=== PATIENT | female | born 1995 | race African-American/Black ===

== ENCOUNTER 2017-02-13 13:39 | Emergency (ER) | payer OTHER ==
[~2017-02-13] VITALS: Ht 165.1 cm; Wt 95.3 kg
[~2017-02-13 13:39] MED LIST: ALBUTEROL0.09 MG/A1 INH; BROMFED DM COU473 ML PO; DOCUSATE SODIU100 MG PO; HYDROCODONE/ACE1 TA1 PO; IBUPROFEN800 MG PO; MOTRIN 800MG T800 MG PO; PERCOCET 325 MG1 TA2 PO; SYMBICORT 160/41 PUF INH
--- NOTE | 2017-02-13 14:34 | RADIOLOGY REPORT ---
EXAMINATION: XR FOOT, RIGHT CLINICAL INFORMATION: Pain after fall to lateral aspect COMPARISON: None TECHNIQUE: AP, lateral, and oblique views of the right foot. FINDINGS: The alignment is normal. No fracture, dislocation or acute osseous abnormality is seen. IMPRESSION: Normal examination.
--- NOTE | 2017-02-13 14:39 | RADIOLOGY REPORT ---
EXAMINATION: XR HAND, LEFT CLINICAL INFORMATION: Fall, pain COMPARISON: None TECHNIQUE: AP, lateral, and oblique views of the left hand. FINDINGS: There is no acute fracture or dislocation of the left hand. Mild soft tissue swelling along the ulnar aspect of the left hand seen. No radiodense foreign body. No soft tissue air. IMPRESSION: No acute fracture or dislocation of left hand.
--- NOTE | 2017-02-13 15:04 | ED GENERAL ADULT ---
See Addendum History of Present Illness General Chief Complaint: Fall Stated Complaint: FELL, HURT R FOOT, L PINKY Source: patient Exam Limitations: no limitations Vital Signs & Intake/Output Vital Signs & Intake/Output Vital Signs Date Time Temp Pulse Resp B/P B/P Pulse O2 O2 Flow FiO2 Mean Ox Delivery Rate 02/13 1350 98.2 84 20 128/84 97 Room Air Allergies Coded Allergies: NO KNOWN ALLERGIES (02/10/14) Reconcile Medications Albuterol Sulfate (Albuterol Sulfate Hfa) 0.09 MG/Actuation TESFAYE 2 PUFF INH Q4- 6 PRN PRN SHORTNESS OF BREATH/ASTHMA 90 MCG PER PUFF BROMPHENIRAMINE/PSEUDOEPHED/DM (Bromfed Dm Cough Syrup) 473 ML SYR 1-2 TSP PO Q6P PRN COUGH OR COLD SYMPTOMS Budesonide/Formoterol Fumara (Symbicort 160-4.5 Mcg Inhaler) 160 MCG/4.5 MCG PUF 2 PUF INH BID ASTHMA (Reported) Docusate Sodium 100 MG SGL 100 MG PO AT BEDTIME PRN STOOL SOFTENER HYDROCODONE/ACETAMINOPHEN (Hydrocodon-Acetaminophen 5-325) 1 TAB TAB 1 TAB PO Q6P PRN PAIN Ibuprofen 800 MG TABLET 800 MG PO Q6P PRN PAIN SCALE 4-6 OXYCODONE HCL/ACETAMINOPHEN (Percocet 5-325 MG Tablet) 325 MG/5 MG TAB 1 TAB PO Q4P PRN PAIN SCALE 7-8 Yibuprofen (Motrin 800MG Tab) 800 MG TAB 1 TAB PO Q6P PRN pain Triage Note: PER PT FELL DOWN 5 STEPS 2 DAYS AGO, PER PT L HAND RT FOOT MOTRIN NOT WORKING CURRENTLY ON MENSES Triage Nurses Notes Reviewed? yes Onset: Abrupt Duration: hour(s): Timing: recent history : No Patient currently breastfeeds: No HPI: 02/13/17 3:30 PM 21-year-old female presents to the emergency department for left fifth finger pain and right dorsal lateral foot pain. The patient states that she was playing with a 3-year-old that she fell down several steps. She denies head injury neck pain or other complaints. No abdominal pain. The onset of the symptoms were abrupt, the duration was just today, the severity is significant; as her symptoms required her to come to the emergency department for care. Past History Travel History Traveled to [place] past 21 day No Medical History Any Pertinent Medical History? see below for history Neurological: NONE EENT: NONE Cardiovascular: NONE Respiratory: asthma Gastrointestinal: NONE Hepatic: NONE Renal: NONE Musculoskeletal: NONE Psychiatric: NONE Endocrine: NONE Surgical History Surgical History: N Psychosocial History What is your primary language Danish Tobacco Use: Never used Family History Hx Contributory? No Review of Systems Review of Systems Constitutional: Denies: fever. EENTM: Reports: no symptoms. Respiratory: Reports: no symptoms. Cardiovascular: Reports: no symptoms. GI: Reports: no symptoms. Genitourinary: Reports: no symptoms. Musculoskeletal: Reports: see HPI. Skin: Denies: rash. Neurological/Psychological: Denies: headache. Hematologic/Endocrine: Denies: bruising, bleeding. Physical Exam Physical Exam General Appearance: well developed/nourished, alert, awake, anxious Head: atraumatic, normal appearance Eyes: Bilateral: normal appearance, PERRL, EOMI. Ears, Nose, Throat: normal pharynx, normal ENT inspection Neck: normal inspection, supple, full range of motion Respiratory: normal breath sounds, chest non-tender, no respiratory distress Cardiovascular: regular rate/rhythm Peripheral Pulses: 4+ radial (L) Gastrointestinal: non-tender Back: normal range of motion Extremities: tenderness Neurologic/Psych: no motor/sensory deficits, awake, alert, oriented x 3 Skin: intact Comments: Patient has tenderness to the left metacarpophalangeal joint. There is no ligament instability. She also has some tenderness to the dorsolateral aspect of the right foot. X-rays of the left hand and the right foot were negative for fracture. She was treated with a walking boot to the right foot to use for 7 days. She was treated with a left metacarpophalangeal finger splint to use for the next week. She will follow-up with her doctor if not better in 7 days. She 'll take ibuprofen for pain Core Measures ACS in differential dx? No CVA/TIA Diagnosis: No Severe Sepsis Present: No Septic Shock Present: No Progress Differential Diagnoses I considered the following diagnoses in my evaluation of the patient: [ Dislocation, fracture, other occult injury] Plan of Care: follow up with your doctor next week Initial ED EKG: none Departure Departure Disposition: STILL A PATIENT Condition: Stable Clinical Impression Primary Impression: Contusion, foot Secondary Impressions: Finger sprain Referrals: UNKNOWN (PCP/Family) Departure Forms: Customer Survey General Discharge Information Comments Fifth finger splint applied by me Critical Care Note Critical Care Note Critical Care Time: non-applicable
[2017-02-13] MEDS ORDERED: IBUPROFEN600 M1 PO (15:33)
[2017-02-13 15:43] VITALS: BP 139/64
== END 2017-02-13 15:54 ==
LOC: ERH 13:39
DX: S90.31XA Contusion of right foot, initial encounter (principal); S63.617A Unspecified sprain of left little finger, initial encounter; W10.9XXA Fall (on) (from) unspecified stairs and steps, initial encounter; Y92.9 Unspecified place or not applicable; Y93.9 Activity, unspecified
CPT/HCPCS: 73130-LT; 73630-RT

== ENCOUNTER 2018-02-09 17:23 | Emergency (ER) | payer OTHER ==
[~2018-02-09] VITALS: Ht 167.6 cm; Wt 111.1 kg
[~2018-02-09 17:23] MED LIST changes: +ALBUTEROL2.5 MG/3 M INH/SOL; +COMPAZINE10 M1 PO; +IBUPROFEN600 M1 PO; +MIRENA1 EACH; +NAPROSYN500 M1 PO; +PRENATAL TABLE1 EAC2 PO; +PROAIR HFA8.5 GM INH; +SYMBICORT 16010.2 GM INH
--- NOTE | 2018-02-09 19:43 | ED GI/GU/ABDOMINAL COMPLAINT ---
History of Present Illness General Chief Complaint: General Adult Stated Complaint: SIB DR Vasquez FOR HYDRATION, 38WKS PREG Source: patient Exam Limitations: no limitations Vital Signs & Intake/Output Vital Signs & Intake/Output Vital Signs Date Time Temp Pulse Resp B/P B/P Pulse O2 O2 Flow FiO2 Mean Ox Delivery Rate 02/09 1953 97.2 104 20 134/76 97 Room Air Room Air 02/09 1735 96.7 98 16 130/75 98 Room Air Allergies Coded Allergies: NO KNOWN ALLERGIES (02/10/14) Reconcile Medications Albuterol Sulfate (Proair Hfa) 90 MCG HFA.AER.AD 2 PUF INH AD PRN ASTHMA ( Reported) Albuterol Sulfate 2.5 MG/3 ML (0.083 %) VIAL.NEB 1 Vial INH/VANITA AD PRN ASTHMA (Reported) Budesonide/Formoterol Fumarate (Symbicort 160-4.5 Mcg Inhaler) 160 MCG-4.5 MCG/ ACTUATION HFA.AER.AD 2 PUF INH BID ASTHMA (Reported) Vit No.130/Iron/FA ( Tablet) 27 MG IRON-800 MCG TABLET 1 TAB PO DAILY (Reported) Triage Note: PT SENT IN BY DR. ZULETA FOR HYDRATION. PT IS 38 WEEKS AND HAS NOT BEEN ABLE TO KEEP ANYTHING DOWN. PT DENIES VAGINAL DISCHARGED STATES JUST MILD CRAMPING. CBC CALLED AND WILL SEE HER AFTER SHE IS DISCHARGED FROM THE ED. Triage Nurses Notes Reviewed? yes ? Y Is pt currently ? No Onset: Abrupt Duration: hour(s): Quality/Severity: cramping Location: generalized abdomen Radiation: back HPI: 22-year-old female approximately 38 weeks comes in with complaints of general abdominal cramping and low back pain. 2 episodes of vomiting. Denies any fever chills. Denies any diarrhea. Denies any leakage of fluid or vaginal bleeding. Childbirth center wanted the patient to be cleared medically before being sent over. (Ernesto Mcgrath) Past History Travel History Traveled to [place] past 21 day No Medical History Any Pertinent Medical History? see below for history Neurological: NONE EENT: NONE Cardiovascular: NONE Respiratory: asthma Gastrointestinal: NONE Hepatic: NONE Renal: NONE Musculoskeletal: NONE Psychiatric: NONE Endocrine: NONE Surgical History Surgical History: , N Psychosocial History What is your primary language Chilean Tobacco Use: Never used ETOH Use: denies use Illicit Drug Use: denies illicit drug use Family History Hx Contributory? No (Ernesto Mcgrath) Review of Systems Review of Systems Constitutional: Reports: no symptoms. EENTM: Reports: no symptoms. Respiratory: Reports: no symptoms. Cardiovascular: Reports: no symptoms. GI: Reports: see HPI. Genitourinary: Reports: see HPI. Musculoskeletal: Reports: no symptoms. Skin: Reports: no symptoms. Neurological/Psychological: Reports: no symptoms. Hematologic/Endocrine: Reports: no symptoms. Immunologic/Allergic: Reports: no symptoms. All Other Systems: Reviewed and Negative (Ernesto Mcgrath) Physical Exam Physical Exam General Appearance: well developed/nourished, no apparent distress, alert, awake Head: atraumatic Eyes: Bilateral: normal appearance. Ears, Nose, Throat, Mouth: hearing grossly normal, moist mucous membrane Neck: normal inspection Cardiovascular: regular rate/rhythm Gastrointestinal: soft, distention Back: normal inspection Extremities: normal range of motion Neurologic/Psych: awake, alert, oriented x 3 Core Measures ACS in differential dx? No Sepsis Present: No Sepsis Focused Exam Completed? No (Ernesto Mcgrath) Progress Differential Diagnosis: biliary colic, kidney stone, UTI/pyelo, LABOR, Plan of Care: Orders Procedure Date/time Status URINALYSIS 02/09 1935 Complete COMPREHENSIVE METABOLIC PANEL 02/09 1935 Complete CBC WITHOUT DIFFERENTIAL 02/09 1935 Complete Laboratory Tests 02/09/181947: Anion Gap 8, Estimated GFR > 60, BUN/Creatinine Ratio 12.0, Glucose 77, Calcium 8.8, Total Bilirubin 0.6, AST 28, ALT 27, Alkaline Phosphatase 106, Total Protein 5.9 L, Albumin 3.1 L, Globulin 2.8, Albumin/Globulin Ratio 1.1, CBC w Diff NO MAN DIFF REQ, RBC 4.78, MCV 72.3 L, MCH 23.4 L, MCHC 32.4 L, RDW 15.7 H, MPV 7.5, Gran % 69.4, Lymphocytes % 14.9 L, Monocytes % 12.1 H, Eosinophils % 3.1, Basophils % 0.5, Absolute Granulocytes 4.4, Absolute Lymphocytes 0.9 L, Absolute Monocytes 0.8 H, Absolute Eosinophils 0.2, Absolute Basophils 0, Urine Color YEL, Urine Clarity CLEAR, Urine pH 7.0, Ur Specific Sumner 1.020, Urine Protein NEG, Urine Ketones NEG, Urine Nitrite NEG, Urine Bilirubin NEG, Urine Urobilinogen 2.0 H, Ur Leukocyte Esterase TRACE H, Ur Microscopic SEDIMENT EXAMINED, Urine RBC 1-3, Urine WBC 3-5 H, Ur Epithelial Cells FEW, Urine Bacteria MOD H, Urine Hemoglobin NEG, Urine Glucose NEG Initial ED EKG: none (Ernesto Mcgrath) Departure Departure Disposition: HOME OR SELF CARE Condition: Stable Clinical Impression Primary Impression: Abdominal pain affecting Referrals: Chinyere HANNA,Jeferson Doss (PCP/Family) Departure Forms: Customer Survey General Discharge Information Comments 02/09/2018 8:34:46 PM Patient clinically looks well however her symptoms are concerning that she may be in active labor. I spoke with Dr. WILLSON FROM [facility]. He wants the patient to be sent over to the childbirth center. IV was established and IV fluids was started and labs were sent and urine was sent and patient was then transported over to the childbirth center for further evaluation. She currently has no leakage of fluid or vaginal bleeding. She has no complaints of fever. She has had 2 episodes of vomiting today. She is nontoxic-appearing. Case discussed with Dr. Jauregui. (Ernesto Mcgrath) PA/[employer]TER OPERATOR Co-Sign Statement Statement: ED Attending supervision documentation- [] I saw and evaluated the patient. I have also reviewed all the pertinent lab results and diagnostic results. I agree with the findings and the plan of care as documented in the PA's/ROOF BOLTER OPERATOR's documentation. [X] I have reviewed the ED Record and agree with the PA's/ROOF BOLTER OPERATOR's documentation. [] Additions or exceptions (if any) to the PAs/ROOF BOLTER OPERATOR's note and plan are summarized below: [] (Juventino HANNA,Jeferson Nunn)
[2018-02-09 19:53] VITALS: BP 134/76
[2018-02-09 19:59] LABS: ABSOLUTE BASOPHIL COUNT 0 /CUMM (0.0-0.2); ABSOLUTE EOSINOPHIL COUNT 0.2 /CUMM (0.0-0.7); ABSOLUTE GRANULOCYTE CT 4.4 /CUMM (1.4-6.5); ABSOLUTE LYMPH COUNT 0.9 /CUMM (1.2-3.4); ABSOLUTE MONOCYTE COUNT 0.8 /CUMM (0.10-0.60); BASOPHIL % 0.5 % (0.0-2.0); EOSINOPHIL % 3.1 % (0-5); GRANULOCYTE % 69.4 % (42.2-75.2); HEMATOCRIT 34.6 % (37-47); MEAN CORPUSCULAR HGB 23.4 PG (27.0-31.0); MEAN CORPUSCULAR HGB CONC 32.4 G/DL (33.0-37.0); MEAN CORPUSCULAR VOLUME 72.3 FL (81.0-99.0); MEAN PLATELET VOLUME 7.5 FL (7.4-10.4); PLATELET COUNT 253 /CUMM (130-400); RBC DISTRIBUTION WIDTH 15.7 % (11.5-14.5); RED BLOOD CELL CT 4.78 /CUMM (4.20-5.40); WHITE BLOOD CELL COUNT 6.3 /CUMM (4.8-10.8)
== END 2018-02-09 20:01 ==
LOC: ERH 17:23
PROVIDERS: Physician Assistant Medical
DX: O26.93 Pregnancy related conditions, unspecified, third trimester (principal); R10.84 Generalized abdominal pain
CPT/HCPCS: 1263; 81001; 96360; 96374; G0463

== ENCOUNTER 2018-02-17 07:00 | Inpatient (IN) | payer OTHER ==
[~2018-02-17] VITALS: Ht 160 cm; Wt 113.4 kg
--- NOTE | 2018-02-17 09:10 | History & Physical ---
General Information and HPI MD Statement: I have seen and personally examined HOME [facility] and documented this H&P. The patient is a 22 year old female at [39] weeks and [3] days gestation who presented with a chief complaint of [repeat c section]. History of Present Illness: 22 yo EDC by u/s 02/21/18 presents for repeat c section. care complete and remarkable for Rh negative blood type, received RhoGam 11/20/17. 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 EENTM: Reports: no symptoms. Cardiovascular: Reports: no symptoms. Respiratory: Reports: no symptoms. GI: Reports: no symptoms. Genitourinary: Reports: no symptoms. Musculoskeletal: Reports: no symptoms. Skin: Reports: no symptoms. Neurological/Psychological: Reports: no symptoms. Hematologic/Endocrine: Reports: no symptoms. Immunologic/Allergic: Reports: no symptoms. All Other Systems: Reviewed and Negative Exam & Diagnostic Data Last 24 Hrs of Vital Signs/I&O vss Obstetric Exam Wgt Gained During : 35 Pelvimetry: gynecoid Dilation (cm): 0 Effacement (%): 0 Station: -2 Membranes: intact Fluid: unknown Fundal Height (cm): 41 Multiple Gestation? No Contractions: none #1 - FHR Baseline: 140 Category: 1 Estimated Weight: 8 Presentation: cephalic Patient for Induction? No Labs Blood Type & Rh: B Neg Antibody Screen: neg Hct/Hgb & Platelets #1: Hct/Hgb & Platelets #2: Rubella: imm VDRL #1: nr VDRL #2: nr HbsAg: neg HIV #1: neg HIV #2 neg 1 Hr P Group B Strep: neg Initial Ultrasound: wnl Anatomy Ultrasound: wnl Ultrasound for EFW: 7 Genetic Testing: neg Last 24 Hrs of Labs/Juan F: vss ITS Data ITS Data Unobtainable at this time Assessment/Plan Assessment/Plan: 39 week previous c section rpt c section As Ranked By This Provider Problem List: 1. Previous section Core Measures Venous Thromboembolism VTE Risk Factors / No Mechanical VTE Prophylaxis d/t N/A MechProphylax Ordered No VTE Pharm Prophylaxis d/t NA PharmProphylax ordered
[2018-02-17] MEDS ORDERED: VALTREX500 M1 PO (10:40)
[2018-02-17 20:18] LABS: ABSOLUTE BASOPHIL COUNT 0 /CUMM (0.0-0.2); ABSOLUTE EOSINOPHIL COUNT 0 /CUMM (0.0-0.7); ABSOLUTE GRANULOCYTE CT 7.4 /CUMM (1.4-6.5); ABSOLUTE MONOCYTE COUNT 0.9 /CUMM (0.10-0.60); BASOPHIL % 0.1 % (0.0-2.0); EOSINOPHIL % 0.5 % (0-5); GRANULOCYTE % 78.8 % (42.2-75.2); HEMATOCRIT 35.7 % (37-47); MEAN CORPUSCULAR HGB 23.2 PG (27.0-31.0); MEAN CORPUSCULAR HGB CONC 32.3 G/DL (33.0-37.0); MEAN CORPUSCULAR VOLUME 71.9 FL (81.0-99.0); PLATELET COUNT 212 /CUMM (130-400); RBC DISTRIBUTION WIDTH 15.6 % (11.5-14.5); RED BLOOD CELL CT 4.97 /CUMM (4.20-5.40); WHITE BLOOD CELL COUNT 9.4 /CUMM (4.8-10.8)
[2018-02-18 06:32] LABS: ABSOLUTE BASOPHIL COUNT 0 /CUMM (0.0-0.2); ABSOLUTE EOSINOPHIL COUNT 0.1 /CUMM (0.0-0.7); ABSOLUTE GRANULOCYTE CT 7.1 /CUMM (1.4-6.5); ABSOLUTE LYMPH COUNT 1.3 /CUMM (1.2-3.4); ABSOLUTE MONOCYTE COUNT 1.1 /CUMM (0.10-0.60); BASOPHIL % 0.3 % (0.0-2.0); EOSINOPHIL % 1.1 % (0-5); GRANULOCYTE % 74.1 % (42.2-75.2); MEAN CORPUSCULAR HGB 23.6 PG (27.0-31.0); MEAN CORPUSCULAR HGB CONC 32.9 G/DL (33.0-37.0); MEAN CORPUSCULAR VOLUME 71.8 FL (81.0-99.0); MEAN PLATELET VOLUME 7.7 FL (7.4-10.4); PLATELET COUNT 213 /CUMM (130-400); RBC DISTRIBUTION WIDTH 15.7 % (11.5-14.5); RED BLOOD CELL CT 4.16 /CUMM (4.20-5.40); WHITE BLOOD CELL COUNT 9.6 /CUMM (4.8-10.8)
[2018-02-18 06:44] LABS: HEMATOCRIT 29.9 % (37-47)
--- NOTE | 2018-02-20 08:32 | PN- Post Delivery/GYN ---
Subjective Subjective: "I'm sick" Review of Systems: hemoptosisi, engorgement Objective Last 24 Hrs of Vital Signs/I&O Tmax 102.1 Physical Exam: Chest: CTA; no rales,ronchi Abd: soft, NTND; incision c/d/i Breast: engorged, callor, no erythema Ext: NT Assessment/Plan Assessment/Plan POD# s/p Rpt C section with new fever and hemoptosis blood Cx x 2 CXR urine Cx CBC encourage breast feeding/pumping will start Unasyn IV Problem List: 1. Previous section
[2018-02-20 08:57] LABS: ABSOLUTE BASOPHIL COUNT 0 /CUMM (0.0-0.2); ABSOLUTE EOSINOPHIL COUNT 0.2 /CUMM (0.0-0.7); ABSOLUTE GRANULOCYTE CT 8.7 /CUMM (1.4-6.5); ABSOLUTE LYMPH COUNT 0.5 /CUMM (1.2-3.4); ABSOLUTE MONOCYTE COUNT 0.6 /CUMM (0.10-0.60); BASOPHIL % 0.2 % (0.0-2.0); EOSINOPHIL % 1.8 % (0-5); HEMATOCRIT 31.2 % (37-47); MEAN CORPUSCULAR HGB 23.6 PG (27.0-31.0); MEAN CORPUSCULAR HGB CONC 33.2 G/DL (33.0-37.0); MEAN CORPUSCULAR VOLUME 71.3 FL (81.0-99.0); MEAN PLATELET VOLUME 7.6 FL (7.4-10.4); PLATELET COUNT 233 /CUMM (130-400); RBC DISTRIBUTION WIDTH 15.9 % (11.5-14.5); RED BLOOD CELL CT 4.37 /CUMM (4.20-5.40); WHITE BLOOD CELL COUNT 10.1 /CUMM (4.8-10.8)
[2018-02-20 09:15] LABS: GRANULOCYTE % 86.3 % (42.2-75.2)
--- NOTE | 2018-02-20 09:50 | RADIOLOGY REPORT ---
EXAMINATION: XR CHEST CLINICAL INFORMATION: Cough, fever. COMPARISON: None TECHNIQUE: 2 views of the chest were obtained. FINDINGS: Dense airspace opacities are noted at lingular segment of the left upper lobe and lateral segment of the right middle lobe, consistent with pneumonia. Follow-up radiograph to resolution is recommended. The remainder of the lung llamas are clear. There is no pleural effusion or pneumothorax present. The cardiomediastinal silhouette is within normal limits. The visualized upper abdomen is unremarkable. IMPRESSION: Bilateral multilobar airspace disease involving left upper lobe and right middle lobe, consistent with pneumonia. Follow-up radiograph to document resolution is recommended.
--- NOTE | 2018-02-20 12:48 | Cons- Medical ---
Pk Rey MD 02/20/18 1230: General Information and HPI Consulting Request Date of Consult: 02/20/18 Requested By: Obdulio Chandler MD History of Present Illness: 22-year-old woman with past medical history of asthma admitted to the child birthing center for scheduled section on 02/17/18 now postop day 3. Patient was found to be febrile with chest x-ray demonstrating possible pneumonia for which a medicine consult was placed. Patient reports feeling well until yesterday. She tolerated her section well and has no associated complaints. She reports yesterday "feeling very sick" and reports feeling feverish with a cough productive of blood-tinged sputum. Review of Systems Otherwise she denies any headache, fever, chills, blurred / double vision, lightheadedness, dizziness, numbness, tingling, weakness, chest pain, palpitations, heartburn, shortness of breath, nausea, vomiting, diarrhea, constipation, urinary symptoms. Allergies/Medications Allergies: Coded Allergies: NO KNOWN ALLERGIES (NONE 02/20/18) Home Med List: Albuterol Sulfate (Proair Hfa) 90 MCG HFA.AER.AD 2 PUF INH AD PRN ASTHMA ( Reported) Albuterol Sulfate 2.5 MG/3 ML (0.083 %) VIAL.NEB 1 Vial INH/VANITA AD PRN ASTHMA (Reported) Budesonide/Formoterol Fumarate (Symbicort 160-4.5 Mcg Inhaler) 160 MCG-4.5 MCG/ ACTUATION HFA.AER.AD 2 PUF INH BID ASTHMA (Reported) Vit No.130/Iron/FA ( Tablet) 27 MG IRON-800 MCG TABLET 1 TAB PO DAILY (Reported) Valacyclovir Hydrochloride (Valtrex) 500 MG TABLET 500 MG PO DAILY HERPES ( Reported) Review of Systems Review of Systems Constitutional: Reports: see HPI. Past History Medical History Neurological: NONE EENT: NONE Cardiovascular: NONE Respiratory: asthma Gastrointestinal: NONE Hepatic: NONE Renal: NONE Musculoskeletal: NONE Psychiatric: NONE Endocrine: NONE Surgical History Surgical History: none, Psychosocial History Smoking Status: Never Smoked Exam & Diagnostic Data Last 24 Hrs of Vital Signs/I&O Vital Signs Date Time Temp Pulse Resp B/P B/P Pulse O2 O2 Flow FiO2 Mean Ox Delivery Rate 02/20 0907 101.4 Physical Exam Other Physical Findings: General - well developed, obese young black woman in no acute distress HEENT - NCAT, PERRL, EOMI, anicteric sclera Neck- Supple, no JVD/HJR, no bruits, trachea midline, thyroid normal Cardio - S1, S2 w/o murmurs/gallops/rubs; tachycardic Resp -diminished bibasilar airflow without wheezing or crackles Abdomen Soft, obese, nontender, nondistended, bowel sounds present Neuro - Awake and alert, CN II - XII grossly intact Extremities - No edema, pulses intact Last 24 Hrs of Labs/Juan F: Laboratory Tests 02/20/18 0835: CBC w Diff NO MAN DIFF REQ, RBC 4.37, MCV 71.3 L, MCH 23.6 L, MCHC 33.2, RDW 15.9 H, MPV 7.6, Gran % 86.3 H, Lymphocytes % 5.4 L, Monocytes % 6.3, Eosinophils % 1.8, Basophils % 0.2, Absolute Granulocytes 8.7 H, Absolute Lymphocytes 0.5 L, Absolute Monocytes 0.6, Absolute Eosinophils 0.2, Absolute Basophils 0 Assessment/Plan Assessment/Plan 22-year-old woman with past medical history of asthma admitted for scheduled section on 02/17/18 now postop day 3 found to have elevated temperature with cough productive of blood-tinged sputum. Presently patient says that she "feels very sick" and reports feeling fatigued with a severe sore throat. She otherwise denies any chest pain or shortness of breath. Vital signs are significant for T-max 101.4 and BP 90/62 in the past 24 hours. Patient's physical exam is fairly unremarkable with a normal cardiopulmonary examination; she has diminished bibasilar airflow without wheezing. Lab studies only include a CBC that demonstrated a white count of 10.1. Chest x-ray demonstrated bilateral multilobar airspace disease consistent with left upper lobe/right middle lobe pneumonia. Blood cultures 2, urine culture, and sputum culture were obtained and patient was given intravenous acetaminophen and started on Unasyn and lactated Ringer for presumed pneumonia. Clinically it appears patient has a bronchitis with a probable atypical pneumonia. Patient's chest x-ray and physical exam is unimpressive for that of pneumonia. However given her hospital admission and documented elevated temperature with left shift on complete blood count it is reasonable to empirically treat for community-acquired pneumonia. Antibiotics should be changed to a beta-lactam and macrolide such as ceftriaxone and azithromycin for a 5 day total course. These may be changed to oral agents after patient is afebrile for 24 hours. Problem list -Fever with sore throat and airspace disease on chest x-ray, possibly community- acquired pneumonia -status post section, POD #3 -History of asthma, well-controlled on pro-air/Symbicort/nebs Recommendations -Continue to monitor vital signs every shift -Ensure patient is using incentive spirometry -Total respiratory care with nebulizer treatments as needed -Check urinalysis, serum chemistry, and lactic acid -Switch Unasyn to ceftriaxone 1 g daily and azithromycin 500 mg IV daily, switch these to oral equivalents after patient is afebrile for 24+ hours -Follow-up blood, urine, sputum cultures and sensitivities Copies To: Jazzy Hare MD,Obdulio Consult Acknowledgment - Thank you for your consult request. Simeon Baker MD 02/20/18 7196: Assessment/Plan Consult Acknowledgment - Thank you for your consult request. Attending MD Review Statement Attending Statement Attending MD Statement: examined this patient, discuss w/resident/PA/CARBIDER, agreed w/resident/PA/CARBIDER, discussed with family, reviewed images, amended to note Attending Assessment/Plan: The patient is a 22 yo female POD 3 s/p who developed fever to 101 and left shift on WBC as noted in above note. Slightly patchy infiltrates on CXR with c/o some cough that is mostly non-productive. The patient also c/o moderate right ear pain (mild left pain as well). Has h/o asthma. Was on Unasyn since last pm. No h/o pneumonia or UTI in past. No urinary symptoms. Physical Exam: VS: Tmax 101.4, R 16, P 82, PO 98% RA HEENT: ears- right TM dull with erythema (c/w otitis media); left TM sl dull w/o erythema maria- dry mucosa Neck: no adenopathy Chest: slightly diminished BS (more at bases), occasional rhonchi Cor: RRR nl S1, S2 w/o murm Abd: BS+, s/p , no focal tenderness. Labs/Tests: as Above Impression/Plan: #Bilateral Pneumonia/Fever- Community acquired. Plan: Agree with Ceftriaxone/Zithromax. Will change to po Vantin/Zithromax when afebrile x 24 hours. Mucinex for congestion. Check U/A, C&S. #Asthma- patient w/o wheeze at time of my exam, however states better post treatments. Plan: Continue Nebulizer. #Right Otitis Media- c/o davalos. Plan: Encourage po fluids Antibiotics as above. Nasal steroid.
--- NOTE | 2018-02-21 11:03 | PN- Post Delivery/GYN ---
Subjective Subjective: FEELING BETTER Review of Systems: IMPROVED Objective Last 24 Hrs of Vital Signs/I&O Vital Signs Date Time Temp Pulse Resp B/P B/P Pulse O2 O2 Flow FiO2 Mean Ox Delivery Rate 02/21 0310 98.3 02/20 2001 96 Room Air Room Air 02/20 1448 100.6 Physical Exam: CHEST CTA FF INCISION WITH SLIGHT DRNG EST NT Assessment/Plan Assessment/Plan S/P POD4 PNEUMONIA DAY 2 ABx CEFTRIAXONE/AZITHROMYCIN DISCHARGE WHEN 24HR AFEBRILE Problem List: 1. Previous section
[2018-02-21 11:37] LABS: ABSOLUTE BASOPHIL COUNT 0 /CUMM (0.0-0.2); ABSOLUTE EOSINOPHIL COUNT 0.2 /CUMM (0.0-0.7); ABSOLUTE GRANULOCYTE CT 9.4 /CUMM (1.4-6.5); BASOPHIL % 0.3 % (0.0-2.0); EOSINOPHIL % 1.8 % (0-5); GRANULOCYTE % 81.3 % (42.2-75.2); HEMATOCRIT 28.7 % (37-47); MEAN CORPUSCULAR HGB 23.8 PG (27.0-31.0); MEAN CORPUSCULAR VOLUME 72.1 FL (81.0-99.0); MEAN PLATELET VOLUME 7.4 FL (7.4-10.4); PLATELET COUNT 248 /CUMM (130-400); RBC DISTRIBUTION WIDTH 15.8 % (11.5-14.5); RED BLOOD CELL CT 3.98 /CUMM (4.20-5.40); WHITE BLOOD CELL COUNT 11.6 /CUMM (4.8-10.8)
--- NOTE | 2018-02-21 14:07 | PN- Medicine Consult ---
See Addendum Assessment/PlanMedical Consult Assessment/Plan Assessment: Impression/Plan: #Bilateral Pneumonia- appears improved on Ceftriaxone/Zithromax. Plan: Continue IV antibiotics today. If remains afebrile would convert to po antibiotics tomorrow (complete total 7 days of cephalosporin (Ceftriaxone - oral Ceftin 250 mg bid) and total 5 days of Zithromax 250 mg daily). Continue Mucinex. #Asthma- improved. Plan: Continue Albuterol MDI #Otitis Media- right ear (with serous otitis left ear). Improved. Plan: Continue antibiotics, Mucinex and Flonase. Plan: As above. Problem List: 1. Otitis media 2. Asthma 3. Pneumonia Subjective Subjective: The patient states cough improved and temperature decreased. Afebrile this morning. Still with bilateral ear discomfort, however improved. Review of Systems Constitutional: Denies: chills, diaphoresis, fever. EENTM: Reports: ear pain (DECREASED/MILD BILAT). Cardiovascular: Denies: no symptoms. Respiratory: Reports: cough (MILD/DECREASED). Gastrointestinal: Denies: no symptoms. Genitourinary: Denies: no symptoms. Musculoskeletal: Denies: no symptoms. Skin: Denies: no symptoms. Neurological/Psychological: Denies: no symptoms. Hematologic/Endocrine: Denies: no symptoms. Immunologic/Allergic: Denies: no symptoms. Objective Last 24 Hrs of Vital Signs/I&O Vital Signs Date Time Temp Pulse Resp B/P B/P Pulse O2 O2 Flow FiO2 Mean Ox Delivery Rate 02/21 0310 98.3 02/20 2001 96 Room Air Room Air 02/20 1448 100.6 Physical Exam General Appearance: well developed/nourished, no apparent distress, alert, awake , comfortable Head: atraumatic, normal appearance Ears, Nose, Throat: normal pharynx (PRIOR HAD R TM ERYTHEMA) Neck: normal inspection, supple (NO ADENOPATHY) Cardiovascular: regular rate/rhythm Respiratory: normal breath sounds, chest non-tender, no respiratory distress, lungs clear (RARE RHONCHI) Abdomen: non-tender Extremities: normal inspection Neurologic/Psychiatric: no motor/sensory deficits, awake, alert, oriented x 3, normal mood/affect Current Medications: Current Medications Sig/Nilsa Start time Last Medication Dose Route Stop Time Status Admin Acetaminophen 1,000 MG Q6H 02/20 0845 DC 02/21 N/A 1 UNIT IV 02/21 0259 0310 Albuterol Sulfate 3 ML EVERY 4 HRS/AWAKE 02/20 1600 AC 02/21 INH 1241 Albuterol Sulfate 2 PUF Q4P PRN 02/17 1830 AC 02/20 INH 0755 Ampicillin Sodium/ 1,500 MG Q6H 02/20 1433 DC Sulbactam Sodium IV Sodium Chloride 100 ML Azithromycin 500 MG DAILY@1700 02/21 1700 AC Sodium Chloride 250 ML IV Azithromycin 500 MG DAILY 02/20 1521 DC 02/20 Sodium Chloride 250 ML IV 1650 Ceftriaxone Sodium 1,000 MG DAILY@1600 02/21 1600 AC IV Ceftriaxone Sodium 1,000 MG DAILY 02/20 1521 DC 02/20 IV 1626 Dextrose/Lactated 1,000 ML Q8H 02/20 0845 AC Ringer's IV Docusate Sodium 100 MG AT BEDTIME PRN 02/17 1415 AC PO Enoxaparin Sodium 40 MG Q24H 02/18 0100 02/21 SC 0032 Fluticasone 2 SPRAY DAILY 02/19 1635 AC 02/19 Propionate DELPHINE 1920 Guaifenesin 600 MG BID 02/20 2100 AC 02/21 PO 0905 Ibuprofen 800 MG .STK-MED ONE 02/20 2317 DC PO 02/20 2318 Ibuprofen 800 MG .STK-MED ONE 02/20 1545 DC PO 02/20 1546 Ibuprofen 800 MG Q6P PRN 02/17 1415 AC 02/21 PO 0905 Lactated Ringer's 1,000 ML Q8H 02/17 1415 02/20 IV 2003 Magnesium Hydroxide 30 ML DAILY NEEDED PRN 02/17 1415 AC PO Oxycodone/ 1 TAB Q4P PRN 02/17 1415 AC 02/19 Acetaminophen PO 2352 Oxycodone/ 2 TAB Q4P PRN 02/17 1415 AC Acetaminophen PO Simethicone 80 MG Q6P PRN 02/19 0500 AC 02/19 PO 1920 Results Last 24 Hrs Lab/Juan F Results: Laboratory Tests 02/21/18 1116: CBC w Diff NO MAN DIFF REQ, RBC 3.98 L, MCV 72.1 L, MCH 23.8 L, MCHC 33.0, RDW 15.8 H, MPV 7.4, Gran % 81.3 H, Lymphocytes % 8.3 L, Monocytes % 8.3, Eosinophils % 1.8, Basophils % 0.3, Absolute Granulocytes 9.4 H, Absolute Lymphocytes 1.0 L, Absolute Monocytes 1.0 H, Absolute Eosinophils 0.2, Absolute Basophils 0 Microbiology 02/20 1725 NASOPHARYN: Influenza Virus A & B Rapid Smear - COMP 02/20 1700 TRUNK: Culture & Sensitivity - RES 02/20 1700 TRUNK: Gram Stain - RES Recent Imaging Studies: CXR 02/20 IMPRESSION: Bilateral multilobar airspace disease involving left upper lobe and right middle lobe, consistent with pneumonia. Follow-up radiograph to document resolution is recommended. Attending MD Review Statement Attending Sign Off Attending Cosign Statement: I have: examined this patient, reviewed [facility] EMR data, personally reviewd images, discussed mgmt plan w/diana, amended to note. Reason for Cont Hospitalizatn: RESOLVING PNEUMONIA/OTITIS
--- NOTE | 2018-02-21 23:47 | PN- Post Delivery/GYN ---
Subjective Subjective: chest pain with deep inspiration Review of Systems: worsening shortness of breath Objective Last 24 Hrs of Vital Signs/I&O Vital Signs Date Time Temp Pulse Resp B/P B/P Pulse O2 O2 Flow FiO2 Mean Ox Delivery Rate 02/21 1648 97 Room Air 02/21 0310 98.3 Physical Exam: chest cta abd soft Assessment/Plan Assessment/Plan s/p c/s pod5 with shahnaz pneumonia worsening chest pain r/o PE ABG, CXR possible CT chest or V/Q consult medicine
--- NOTE | 2018-02-22 00:32 | RADIOLOGY REPORT ---
EXAMINATION: CHEST 1 VIEW CLINICAL INFORMATION: Chest pain. COMPARISON: February 20, 2018. TECHNIQUE: An AP view of the chest is provided. FINDINGS: Evaluation of the lungs is limited secondary to the patient's extreme body habitus and low lung volumes. The cardiac silhouette is stable. There is streaky bibasilar opacification. There are neither pleural effusions nor pneumothoraces. The osseous structures are stable. IMPRESSION: Limited evaluation secondary to the patient's extreme body habitus and low lung volumes. There is streaky bibasilar opacification. This is nonspecific, but likely account maintenance representative of atelectasis. Underlying pneumonia cannot be excluded. Consider a repeat examination with adequate inflation.
--- NOTE | 2018-02-22 01:13 | Event Note ---
See Addendum Event Note Event Note: HPI: 22 year old female with PMHx significant for asthma who admitted for elective schedule CS on 02/17/18. 3 days after she was admitted she was found febrile and had CXR suggest pneumonia which medical consult was placed. The patient was started on IV ceftriaxone and azithromycin. The patient was improving until tonight when she developed nonradiating, pressure-like, substernal chest pain. Pain is worse with deep breath and laying flat and improved with leaning forward. The pain is associated with mild shortness breath which she contributed to pain with deep inspiration. She denies any other active complaints. Physical exam: A&O x3 in mild distress. CVS NL S1/S2 without MRGs. Resp diffuse decreased air entry without additional sounds. No LE edema. Assessment: Patient s/p CS, with recently diagnosed pneumonia, currently afebrile however with worsening leukocytosis. Her ABG showed mild uncompensated respiratory alkalosis. ABG also showed PaO2 of 67. Need to rule out PE. No symptom or sign suggestive of asthma exacerbation. The patient reported that the pain worsened when she lays flat and improved when she leaned forward, given recent pneumonia this is concerning for pericarditis, EKG did not show any significant abnormalities. We will consider pericarditis after PE is ruled out. BEP showed normal RFTs with hypokalemia, first trop is negative, Plan: -CTA chest to rule out PE -Oxygen supplement as needed -TRC/nebs [id number] -Vitals every 4 -Replete potassium with 60 mEq once -Repeat BEP in the morning to follow renal function and potassium after CTA -IF CTA is negative for PE then: * Consider covering hospital-acquired pneumonia if febrile or worsening leukocytosis while on ceftriaxone azithromycin * Rule out ACS with another 2 sets of troponin and EKG 6 hours apart * Consider Echo to r/o pericardial effusion Please inform MOD with any changes, pager [phone]. Thank you.
--- NOTE | 2018-02-22 02:33 | CT SCAN REPORT ---
EXAMINATION: CT PULMONARY EMBOLISM STUDY CLINICAL INFORMATION: Substernal chest pain. COMPARISON: Same day chest radiograph. TECHNIQUE: Contiguous helical images of the chest were obtained following the administration of IV contrast. Multiplanar reconstructions were performed. MIPS were obtained and reviewed. DLP: 934 mGy-cm. CONTRAST: 95 cc of Optiray 320 were administered without incident. FINDINGS: The heart is of normal size. There is no pericardial effusion. There are several right-sided pulmonary arterial branch filling defects, within the right upper and lower lobes. The great vessels are otherwise unremarkable. There are scattered bilateral axillary lymph nodes. The largest on the left measures approximately 13 mm in short axis. The largest on the right measures 8 mm in short axis. There are no chest wall masses. Review of lung windows demonstrates that there are neither pleural effusions nor pneumothoraces. There are multifocal consolidations present within both upper lobes, the right lower lobe as well as the lingula. Limited evaluation of the upper abdomen demonstrates that the liver is of normal size and attenuation without focal lesions. Normal adrenal glands are identified. The spleen is of overall normal size and attenuation. There is extensive heterogeneity to the spleen. IMPRESSION: Right-sided pulmonary arterial filling defects indicative of right-sided pulmonary emboli. Multifocal pneumonia. Recommendation is for a followup chest series to be obtained following treatment and/or resolution of symptoms to assure resolution of this appearance. Extensive heterogeneity to the spleen which is likely compliance representative of the differential enhancement to read and white pulp; however, that there are multiple subcentimeter low-attenuation nonenhancing lesions is difficult to exclude. Following treatment and/or resolution of symptoms, consider correlation with a follow-up limited left upper quadrant ultrasound. Prominent bilateral axillary lymph nodes. Correlate clinically. The aforementioned was communicated to Dr. Raza at 0229 hours.
--- NOTE | 2018-02-22 03:05 | Operative Report ---
Operative/Inv Procedure Report Surgery Date: 02/17/18 Name of Procedure: Repeat Pre-Operative Diagnosis: Previous Post-Operative Diagnosis: Same dense adhesions, Estimated Blood Loss: 800 mL Surgeon/Extrusion Machine Operator: Jazzy Hare MD,Obdulio Antonio M.D. Anesthesia: spinal Operative/Procedure Note Note: The patient was brought to the operating room placed on the OR table in the sitting position where she underwent spinal anesthetic without complication. She was repositioned into dorsal supine block under her right. Venodyne boots in place prior to anesthesia were activated. A Mccarty catheter was inserted and drained clear yellow urine. The abdomen was prepped and draped in usual fashion and tested. A Pfannenstiel skin incision was made through the old scar and taken down to the layer of the fascia. The fascia was nicked in the midline and extended bilaterally. The underlying rectus muscles were sharply dissected off of the overlying fascia. The peritoneal cavity was entered bluntly. The fascia was extremely dense and was taken down with the scalpel. This was extended bilaterally. About a bladder blade was inserted to protect the bladder from the operative field. A low transverse uterine incision was made with the scalpel and extended bilaterally. An attempt was made to deliver the however there wasn't enough room so the uterus was given a T incision. A liveborn female was then delivered atraumatically and handed off to the waiting performance analyst. The placenta was then manually removed intact with three-vessel cord. Uterus was wiped clean with a wet lap sponge. Storey clamps were placed on the edges of the uterine incision. The uterus was closed in 2 layers of 0 Polysorb, second imbricating the first 2 [id number] sutures were also placed in addition on the T incision. The abdomen and pelvis were copiously irrigated. The rectus muscles had been cut with bandage scissors during surgery to give more exposure and these were reapproximated with 0 Polysorb sutures the fascia was closed with 0 Polysorb in a running nonlocking fashion. Subcutaneous tissues were then irrigated and coagulated were needed. Skin was closed using edi. A dry sterile dressing was applied to the wound. The patient was taken to recovery in good condition. All needle, sponge, and instrument counts were correct at the end of the procedure 4.
[2018-02-22 04:00] VITALS: BP 140/84
[2018-02-22 05:48] LABS: ABSOLUTE BASOPHIL COUNT 0 /CUMM (0.0-0.2); ABSOLUTE EOSINOPHIL COUNT 0.3 /CUMM (0.0-0.7); ABSOLUTE GRANULOCYTE CT 10.4 /CUMM (1.4-6.5); ABSOLUTE LYMPH COUNT 0.7 /CUMM (1.2-3.4); ABSOLUTE MONOCYTE COUNT 0.9 /CUMM (0.10-0.60); BASOPHIL % 0.3 % (0.0-2.0); EOSINOPHIL % 2.5 % (0-5); GRANULOCYTE % 83.6 % (42.2-75.2); HEMATOCRIT 30.2 % (37-47); MEAN CORPUSCULAR HGB 23.7 PG (27.0-31.0); MEAN CORPUSCULAR VOLUME 71.7 FL (81.0-99.0); PLATELET COUNT 288 /CUMM (130-400); RBC DISTRIBUTION WIDTH 15.9 % (11.5-14.5); RED BLOOD CELL CT 4.21 /CUMM (4.20-5.40)
[2018-02-22 05:52] LABS: PT 11.3 SEC (9.4-12.5); PTT 30 SEC (25-37)
[2018-02-22 06:23] LABS: WHITE BLOOD CELL COUNT 12.4 /CUMM (4.8-10.8)
--- NOTE | 2018-02-22 08:12 | PN- Housestaff ---
Joseph HANNA,Nicol 02/22/18 0811: Subjective Follow-up For: Pulmonary embolism following section Subjective: Patient seen and examined at bedside. Patient was sitting in her bed comfortably. Patient is on 2.5 minutes of oxygen. Denies chest pain, shortness of breath. Review of Systems Constitutional: Reports: no symptoms, see HPI. Objective Last 24 Hrs of Vital Signs/I&O Vital Signs Date Time Temp Pulse Resp B/P B/P Pulse O2 O2 Flow FiO2 Mean Ox Delivery Rate 02/22 0825 92 Nasal 3.0L Cannula 02/22 0800 92 Nasal 3.0L Cannula 02/22 0452 91 Nasal 3.0L Cannula 02/22 0400 98.1 64 18 140/84 91 Nasal 3.0L Cannula 02/22 0015 Room Air 02/21 1648 97 Room Air Intake & Output 02/22 1600 02/22 0800 02/22 0000 Intake Total 180 Output Total Balance 180 Intake, IV 60 Intake, Oral 120 Patient 247 lb Weight Weight Bed scale Measurement Method Physical Exam General Appearance: Alert, Oriented X3, Cooperative, No Acute Distress Skin: No Rashes Cardiovascular: Regular Rate, Normal S1, Normal S2, No Murmurs Lungs: Clear to Auscultation Abdomen: Normal Bowel Sounds, Soft, No Tenderness Neurological: Normal Speech, Strength at 5/5 X4 Ext, Normal Tone, Sensation Intact Current Medications: Current Medications Sig/Nilsa Start time Last Medication Dose Route Stop Time Status Admin Albuterol Sulfate 3 ML EVERY 4 HRS/AWAKE 02/20 1600 AC 02/22 INH 1028 Albuterol Sulfate 2 PUF Q4P PRN 02/17 1830 AC 02/20 INH 0755 Azithromycin 500 MG DAILY@1700 02/21 1700 DC 02/21 Sodium Chloride 250 ML IV 1705 Ceftazidime 2,000 MG Q8 02/22 1400 UNVr IV Ceftazidime 1,000 MG Q12 02/22 1058 DCr IV Ceftriaxone Sodium 1,000 MG DAILY@1600 02/21 1600 DC 02/21 IV 1549 Dextrose/Lactated 1,000 ML Q8H 02/20 0845 DC Ringer's IV Docusate Sodium 100 MG AT BEDTIME PRN 02/17 1415 AC PO Enoxaparin Sodium 40 MG Q24H 02/18 0100 DC 02/21 SC 2337 Fluticasone 2 SPRAY DAILY 02/19 1635 02/22 Propionate DELPHINE 1026 Guaifenesin 600 MG BID 02/20 2100 AC 02/22 PO 1026 Heparin Sodium 25,000 UNIT Q24H 02/22 0315 AC 02/22 (Porcine) IV 0444 Sodium Chloride 500 ML Heparin Sodium 5,000 UNIT ONCE ONE 02/22 0315 CAN (Porcine) IV 02/22 0316 Ibuprofen 800 MG .STK-MED ONE 02/21 2142 DC PO 02/21 2143 Ibuprofen 800 MG .STK-MED ONE 02/21 1523 DC PO 02/21 1524 Ibuprofen 800 MG Q6P PRN 02/17 1415 [place] 02/21 PO 2145 Ketorolac 30 MG ONCE ONE 02/22 1015 DC 02/22 Tromethamine IV 02/22 1016 1022 Lactated Ringer's 1,000 ML Q8H 02/17 1415 [place] 02/20 IV 2003 Magnesium Hydroxide 30 ML DAILY NEEDED PRN 02/17 1415 PO Oxycodone/ 1 TAB Q4P PRN 02/17 1415 AC 02/19 Acetaminophen PO 2352 Oxycodone/ 2 TAB Q4P PRN 02/17 1415 AC 02/22 Acetaminophen PO 0624 Potassium Chloride 20 MEQ ONCE ONE 02/22 0615 DC 02/22 PO 02/22 0616 0620 Potassium Chloride 60 MEQ ONCE ONE 02/22 0115 DC 02/22 PO 02/22 0116 0403 Simethicone 80 MG Q6P PRN 02/19 0500 AC 02/19 PO 1920 Vancomycin HCl 1,000 MG DAILY 02/22 1058 UNir Sodium Chloride 250 ML IV Last 24 Hrs of Lab/Juan F Results Last 24 Hrs of Labs/Mics: Laboratory Tests 02/22/18 1030: APTT Pending 02/22/18 0500: Iron 32 L, TIBC 425, Ferritin 45.1 02/22/18 0500: Anion Gap 11, Estimated GFR > 60, BUN/Creatinine Ratio 12.0, Magnesium 1.9, Total Bilirubin 0.7, Direct Bilirubin 0.1, AST 39 H, ALT 38, Alkaline Phosphatase 153 H, Troponin I 0.03, Total Protein 5.8 L, Albumin 3.0 L, PT 11.3, INR 1.04, APTT 30, CBC w Diff NO MAN DIFF REQ, RBC 4.21, MCV 71.7 L, MCH 23.7 L, MCHC 33.0, RDW 15.9 H, MPV 8.0, Gran % 83.6 H, Lymphocytes % 6.0 L, Monocytes % 7.6, Eosinophils % 2.5, Basophils % 0.3, Absolute Granulocytes 10.4 H, Absolute Lymphocytes 0.7 L, Absolute Monocytes 0.9 H, Absolute Eosinophils 0.3, Absolute Basophils 0 02/22/18 0020: Troponin I 0.01 02/22/18 0020: Anion Gap 10, Estimated GFR > 60, BUN/Creatinine Ratio 10.0, Phosphorus 4.7 H, Magnesium 2.0, Jvf-Y-Balmnzxbdmg Pept 1090 H 02/22/18 0000: pH 7.48 H, pCO2 31 L, pO2 67 L, HCO3 22, ABG O2 Sat (Measured) 93.0 L, P-50 (Temp Corrected) N, Carboxyhemoglobin 0.4 L, O2 Concentration % RA, Phlebotomy Draw Site RIGHT RADIAL 02/21/18 1116: CBC w Diff NO MAN DIFF REQ, RBC 3.98 L, MCV 72.1 L, MCH 23.8 L, MCHC 33.0, RDW 15.8 H, MPV 7.4, Gran % 81.3 H, Lymphocytes % 8.3 L, Monocytes % 8.3, Eosinophils % 1.8, Basophils % 0.3, Absolute Granulocytes 9.4 H, Absolute Lymphocytes 1.0 L, Absolute Monocytes 1.0 H, Absolute Eosinophils 0.2, Absolute Basophils 0 Microbiology 02/22 1101 UPPER RESP: Surveillance Culture - ORD 02/22 1101 GI: Surveillance Culture - ORD Assessment/Plan Assessment: 22 year old female with PMHx significant for asthma who admitted for elective schedule CS on 02/17/18. 3 days after she was admitted she was found febrile and had CXR suggest pneumonia which medical consult was placed. The patient was started on IV ceftriaxone and azithromycin. Patient transferred to telemetry in view of pulmonary embolism. Plan: #Right side upper and lower lobe symptomatic PE: * Patient is on heparin * Ultrasound Doppler bilateral lower extremity * Echocardiogram #Pneumonia * on azithro & ceftrixone. Given her increase in the white cell count and increased requirement of oxygen we will change to ceftaz and vancomycin covering for hospital acquired pneumonia. * Follow sputum culture #Recent section * Currently stable with no obvious symptom or sign of incision infection or bleeding * Typesetting Supervisor will continue follow. Spoke to Dr. Chandler who suggested to transfer the patient for ICU in view of close monitoring. #Microcytic anemia * Patient has low iron but normal TIBC and ferritin level. # CTA showed spleen multiple subcentimeter low-attenuation nonenhancing lesions * Follow-up limited left upper quadrant ultrasound once pt improved #HypoK+ * Today's potassium is 3.5 with a magnesium of 1.9. We will replace the same. -Regular diet -DVT PPx with ALPS after r/o DVT & IV heprin drip -FC In view of increased oxygen requirement patient is transferred to ICU. Problem List: 1. Pneumonia Pain Ratin Pain Location: none Pain Goal: Remain pain free Pain Plan: percocet Tomorrow's Labs & Rationales: cbc,bep Samuel HANNA,Simeon 02/22/18 1752: Attending MD Review Statement Attending Statement Attending MD Statement: examined this patient, discuss w/resident/PA/CONTRACT RUNNER, agreed w/resident/PA/CONTRACT RUNNER, discussed with family, reviewed EMR data (avail), reviewed images, amended to note Attending Assessment/Plan: The patient was seen and discussed with house staff. Events of last pm noted. Patient now with pulmonary emboli. Remains afebrile, however slight increase in WBC. The patient is on heparin drip. Agree with broadening antibiotics to cover Hospital Acquired Pneumonia. With worsening hypoxemia will transfer to ICU and consult Electric Wirer/Pulmonary (Dr. Leos).
--- NOTE | 2018-02-22 11:04 | Cons- CRCU ---
Eveline HANNA,Isidoro 02/22/18 1103: General Information and HPI Consulting Request Date of Consult: 02/22/18 Requested By: Dr Simeon Baker Reason for Consult: Worsening hypoxia, secondary to PE and PNA Source of Information: patient, EMAR Exam Limitations: no limitations History of Present Illness: 22 yo F s/p on 02/17/18, Rh negative blood type s/p RhoGam on 11/20, previous miscarriage at 10 weeks of geatation and family history ( grandfather) of blood clots, asthma, was transferred from [facility] to telemetry initially after finding the patient to have multilobar pneumonia, and last night with worsening hypoxia/dyspnea, a CT angiogram proven pulmonary embolism. This morning, she appeared more dyspneic and for closer observation, she was transferred to the ICU. Patient endorses cough with blood-tinged sputum, and some shortness of breath as well, even at rest. She has not had a good night sleep so feels tired currently. No recent sick contacts per the patient. No chest pain, palpitation, leg swelling, fever/chills. The baby is safe and healthy per the patient (mother) and she has tried the child, but not currently. Allergies/Medications Allergies: Coded Allergies: NO KNOWN ALLERGIES (NONE 02/20/18) Home Med List: Albuterol Sulfate (Proair Hfa) 90 MCG HFA.AER.AD 2 PUF INH AD PRN ASTHMA ( Reported) Albuterol Sulfate 2.5 MG/3 ML (0.083 %) VIAL.NEB 1 Vial INH/VANITA AD PRN ASTHMA (Reported) Budesonide/Formoterol Fumarate (Symbicort 160-4.5 Mcg Inhaler) 160 MCG-4.5 MCG/ ACTUATION HFA.AER.AD 2 PUF INH BID ASTHMA (Reported) Vit No.130/Iron/FA ( Tablet) 27 MG IRON-800 MCG TABLET 1 TAB PO DAILY (Reported) Valacyclovir Hydrochloride (Valtrex) 500 MG TABLET 500 MG PO DAILY HERPES ( Reported) Current Medications: Current Medications Sig/Nilsa Start time Last Medication Dose Route Stop Time Status Admin Acetaminophen 1,000 MG Q6P PRN 02/22 1130 AC N/A 1 UNIT IV Albuterol Sulfate 3 ML EVERY 4 HRS/AWAKE 02/20 1600 AC 02/22 INH 1028 Albuterol Sulfate 2 PUF Q4P PRN 02/17 1830 AC 02/20 INH 0755 Azithromycin 500 MG DAILY@1700 02/21 1700 MS 02/21 Sodium Chloride 250 ML IV 1705 Ceftazidime 2,000 MG Q8H 02/22 1200 AC 02/22 IV 1302 Ceftazidime 1,000 MG Q12 02/22 1058 DC IV Ceftriaxone Sodium 1,000 MG DAILY@1600 02/21 1600 DC 02/21 IV 1549 Dextrose/Lactated 1,000 ML Q8H 02/20 0845 DC Ringer's IV Docusate Sodium 100 MG AT BEDTIME PRN 02/17 1415 AC PO Enoxaparin Sodium 40 MG Q24H 02/18 0100 DC 02/21 SC 2337 Fluticasone 2 SPRAY DAILY 02/19 1635 AC 02/22 Propionate DELPHINE 1026 Guaifenesin 600 MG BID 02/20 2100 AC 02/22 PO 1026 Heparin Sodium 8,400 UNIT ONCE ONE 02/22 1330 DC 02/22 (Porcine) IV 02/22 1331 1333 Heparin Sodium 25,000 UNIT Q24H 02/22 0315 AC 02/22 (Porcine) IV 0444 Sodium Chloride 500 ML Heparin Sodium 5,000 UNIT ONCE ONE 02/22 0315 CAN (Porcine) IV 02/22 0316 Ibuprofen 800 MG .STK-MED ONE 02/21 2142 DC PO 02/21 2143 Ibuprofen 800 MG .STK-MED ONE 02/21 1523 DC PO 02/21 1524 Ibuprofen 800 MG Q6P PRN 02/17 1415 DC 02/21 PO 2145 Ketorolac 30 MG ONCE ONE 02/22 1015 DC 02/22 Tromethamine IV 02/22 1016 1022 Lactated Ringer's 1,000 ML Q8H 02/17 1415 DC 02/20 IV 2003 Magnesium Hydroxide 30 ML DAILY NEEDED PRN 02/17 1415 PO Ondansetron HCl 4 MG ONCE ONE 02/22 1130 DC 02/22 IV 02/22 1131 1130 Oxycodone/ 1 TAB Q4P PRN 02/17 1415 AC 02/19 Acetaminophen PO 2352 Oxycodone/ 2 TAB Q4P PRN 02/17 1415 DC 02/22 Acetaminophen PO 0624 Potassium Chloride 20 MEQ ONCE ONE 02/22 0615 DC 02/22 PO 02/22 0616 0620 Potassium Chloride 60 MEQ ONCE ONE 02/22 0115 DC 02/22 PO 02/22 0116 0403 Simethicone 80 MG Q6P PRN 02/19 0500 AC 02/19 PO 1920 Vancomycin HCl 1,750 MG Q12H 02/22 1200 AC 02/22 Sodium Chloride 500 ML IV 1302 Review of Systems Review of Systems Constitutional: Reports: see HPI. EENTM: Reports: no symptoms. Cardiovascular: Reports: no symptoms. Respiratory: Reports: see HPI, cough, hemoptysis, short of breath. GI: Reports: no symptoms. Genitourinary: Reports: no symptoms. Musculoskeletal: Reports: no symptoms. Skin: Reports: no symptoms. Neurological/Psychological: Reports: no symptoms. Hematologic/Endocrine: Reports: no symptoms. All Other Systems: Reviewed and Negative Past History Medical History Blood Transfusion Hx: No Neurological: NONE EENT: NONE Cardiovascular: NONE Respiratory: asthma Gastrointestinal: NONE Hepatic: NONE Renal: NONE Musculoskeletal: NONE Psychiatric: NONE Endocrine: NONE Blood Disorders: NONE Cancer(s): NONE CARE SPECIALIST/Reproductive: miscarriage Surgical History Surgical History: Psychosocial History Where Do You Live? Home Primary Language: Hebrew Smoking Status: Never Smoked ETOH Use: denies use Illicit Drug Use: denies illicit drug use Functional Ability ADLs Independent: dressing, eating, toileting, bathing. Ambulation: independent IADLs Independent: shopping, housework, finances, food prep, telephone, transportation , medication admin. Exam & Diagnostic Data Last 24 Hrs of Vital Signs/I&O Vital Signs Date Time Temp Pulse Resp B/P B/P Pulse O2 O2 Flow FiO2 Mean Ox Delivery Rate 02/22 0825 92 Nasal 3.0L Cannula 02/22 0800 92 Nasal 3.0L Cannula 02/22 0452 91 Nasal 3.0L Cannula 02/22 0400 98.1 64 18 140/84 91 Nasal 3.0L Cannula 02/22 0015 Room Air 02/21 1648 97 Room Air Intake & Output 02/22 1600 02/22 0800 02/22 0000 Intake Total 180 Output Total Balance 180 Intake, IV 60 Intake, Oral 120 Patient 112 kg Weight Weight Bed scale Measurement Method Physical Exam General Appearance: alert, awake, anxious, mild distress (respiratory), obese, on NC at 4L/min, patient on prone position per her preference Head: atraumatic, normal appearance Eyes: Bilateral: normal appearance. Ears, Nose, Throat: normal pharynx, normal ENT inspection, hearing grossly normal Neck: normal inspection, supple, full range of motion Respiratory: air entry b/l+ but reduced, no wheeze noted Cardiovascular: regular rate/rhythm Peripheral Pulses: 4+ radial (R), 4+ radial (L) Gastrointestinal: normal bowel sounds, soft, non-tender, incision intact/healthy Back: normal inspection Extremities: normal inspection, normal capillary refill, normal range of motion, no edema Neurologic/Psych: grossly intact Skin: intact, normal color, warm/dry Last 48 Hrs of Labs/Juan F: Laboratory Tests 02/22/18 1030: APTT Pending 02/22/18 0500: Iron 32 L, TIBC 425, Ferritin 45.1 02/22/18 0500: Anion Gap 11, Estimated GFR > 60, BUN/Creatinine Ratio 12.0, Magnesium 1.9, Total Bilirubin 0.7, Direct Bilirubin 0.1, AST 39 H, ALT 38, Alkaline Phosphatase 153 H, Troponin I 0.03, Total Protein 5.8 L, Albumin 3.0 L, PT 11.3, INR 1.04, APTT 30, CBC w Diff NO MAN DIFF REQ, RBC 4.21, MCV 71.7 L, MCH 23.7 L, MCHC 33.0, RDW 15.9 H, MPV 8.0, Gran % 83.6 H, Lymphocytes % 6.0 L, Monocytes % 7.6, Eosinophils % 2.5, Basophils % 0.3, Absolute Granulocytes 10.4 H, Absolute Lymphocytes 0.7 L, Absolute Monocytes 0.9 H, Absolute Eosinophils 0.3, Absolute Basophils 0 02/22/18 0020: Troponin I 0.01 02/22/18 0020: Anion Gap 10, Estimated GFR > 60, BUN/Creatinine Ratio 10.0, Phosphorus 4.7 H, Magnesium 2.0, Tmn-T-Htpymouktbe Pept 1090 H 02/22/18 0000: pH 7.48 H, pCO2 31 L, pO2 67 L, HCO3 22, ABG O2 Sat (Measured) 93.0 L, P-50 (Temp Corrected) N, Carboxyhemoglobin 0.4 L, O2 Concentration % RA, Phlebotomy Draw Site RIGHT RADIAL 02/21/18 1116: CBC w Diff NO MAN DIFF REQ, RBC 3.98 L, MCV 72.1 L, MCH 23.8 L, MCHC 33.0, RDW 15.8 H, MPV 7.4, Gran % 81.3 H, Lymphocytes % 8.3 L, Monocytes % 8.3, Eosinophils % 1.8, Basophils % 0.3, Absolute Granulocytes 9.4 H, Absolute Lymphocytes 1.0 L, Absolute Monocytes 1.0 H, Absolute Eosinophils 0.2, Absolute Basophils 0 Microbiology 02/20 1725 NASOPHARYN: Influenza Virus A & B Rapid Smear - COMP 02/20 170 TRUNK: Culture & Sensitivity - COMP 02/20 170 TRUNK: Gram Stain - COMP Diagnostic Data EKG Results sinus rhythm, no Rt side strain pattern noted, no ischemic changes, and QTc <470 CXR Results b/l multilobak PNA Other Results CTA: Positive for Rt sided PE, and extensive multilobar PNA Assessment/Plan CRCU Impression/Plan: 22 yo F s/p on 02/17/18, Rh negative blood type s/p RhoGam on 11/20, previous miscarriage at 10 weeks of geatation and family history ( grandfather) of blood clots, asthma, was transferred from [facility] to telemetry initially after finding the patient to have multilobar pneumonia, and last night with worsening hypoxia/dyspnea, a CT angiogram proven pulmonary embolism. This morning, she appeared more dyspneic and for closer observation, she was transferred to the ICU. Patient is currently being treated in the ICU for the following issues: RESPIRATORY #Rt sided PE Continue IV Heparin gtt, trc/nebs PRN, O2 to maintain SpO2>92% #Multifocal PNA Brodened IV abx from (Unasyn initially) CTZ and Azithromycin to IV Vanc and Ceftaz for broader coverage. Conitnue trc/nebs as mentioned above. Await LRC ( also sent today). INFECTIOUS DISEASE #Multilobar PNA, on IV abx, awaiting culture CARDIOLOGY No issues, but pending Echo report. HEMATOLOGY #Rt sided PE Patient has h/o miscarriage and family h/o blood clots in her grandfather. This could be genetic or due to recent surgery//obesity/decreased activity as multiple risk-factors working together. Will call for Heme consult and see recs. Will continue IV Heparin till then. METABOLIC No issues -Received 20meq of KCl today for K value of 3.5 ALIMENTARY No issues NEPHROLOGY No issues, BUN/Cr today is 6/0.5 NEUROLOGY No issues, except mild anxiety. She received one dose of Tab Alprazolam 0.25mg while watching for resp status closely. CHRONIC ISSUES OTHERWISE: Asthma being treated as above resp issues. MISC: Diet: PO Regular diet DVT prophylaxis: IV Heparin, ALPS Code status: Full code IV access: Peripheral Family update: Done as the patient was interview alongside (patient's aunt was spoken with) Recommendations: as above Problem List: 1. Pulmonary emboli 2. Multifocal pneumonia Consult Acknowledgment - Thank you for your consult request. Luke Leos MD 02/22/18 1150: Assessment/Plan CRCU Other Findings/Comments: Luke Garza M.D. have examined this patient, reviewed available EMR data, personally reviewed images, discussed with resident/PA/PANEL EDGE SEALER, discussed management plan with housestaff and nursing staff, discussed managment plan all of healthcare providers, discussed management plan with patient and/or family, agreed with resident/PA/PANEL EDGE SEALER. The past history and parts of the chart have been autopopulated. Impression 22 year old woman * Righ sided PE - multiple filling defects - hx of miscarriage and family hx of VTE * Multifocal pneumonia with air bronchograms without any pleural effusions * s/p Plan Respiratory -keep spo2>92% -a/c for PE, abx for pna Infectious Disease -abx were broadened to cover health associated pathogens and aspiration pathogens -sputum cx, will tailor abx based on this -aspiration precautions, including careful pain control Cardiovascular -f/u ECHO, f/u LE dopplers -hemodynamic monitoring -BNP elevated Hematology -will request routine hematology evaluation to suggest hypercoagulable workup in setting of grandfather having blood clots and person history of miscarriage Metabolic -ins/outs -monitor electrolytes, creatinine Alimentary -aspiration precautions -will evaluate dietary needs Neurology -no acute issues at this time DVT prophylaxis at all times TTS 45 min Patient is not planning on breast feeding at this time. Consult Acknowledgment - Thank you for your consult request.
[2018-02-22 11:24] LABS: PTT 34 SEC (25-37)
--- NOTE | 2018-02-22 11:28 | Event Note ---
Event Note Event Note: 22 yo F who is POD 5 and is being treated for multifocal pneumonia, transferd to telemetry on 02/22 under medical service for right sided PE and multifocal pneumonia. she is on IV heparin per PTT protocol, monitoring H/H while on heparin. she was hypoxic this morning 92% requiring 4 L oxygen supplementation from 2.5 L , also she is requiring every 2 hours breathing treatments. She reports shortness of breath at rest, denies any more chest pain. * Spoke with Dr. Gates who recommended transfer to ICU for closer monitoring * Follow-up echocardiogram * Follow-up lower extremity Dopplers for any deep vein thrombosis * CT was also suggestive of extensive heterogeneity to spleen which needs further evaluation with an abdominal ultrasound. Follow-up abdominal ultrasound * Worsening leukocytosis-antibiotic coverage has broadened this morning. * Patient is on ceftaz and vanco. * She is anemic (probably iron deficient, blood loss) which needs to be monitored. She reports minimal vaginal bleeding without any clots. Notified Dr. Baker and Dr. Leos. Family at bedside, notified about the transfer.
[2018-02-22 11:30] VITALS: BP 132/78
--- NOTE | 2018-02-22 12:08 | ULTRASOUND REPORT ---
EXAMINATION: US TRIPLEX OF LOWER EXTREMITIES, BILATERAL CLINICAL INFORMATION: History of pulmonary embolus. COMPARISON: None TECHNIQUE: Color-flow triplex imaging with spectral analysis and compression Doppler were performed on the lower extremities. FINDINGS: Respiratory variation, normal compression and augmented flow are noted throughout the lower extremities. The visualized common femoral vein, proximal greater saphenous vein, femoral vein, profunda femoral vein, popliteal vein and visualized mid calf venous segments show no evidence of deep venous thrombosis. There is no Hills's cyst. IMPRESSION: No evidence of deep venous thrombosis involving the bilateral lower extremities.
--- NOTE | 2018-02-22 13:00 | ULTRASOUND REPORT ---
EXAMINATION: US ABDOMEN LIMITED CLINICAL INFORMATION: Abnormal finding incidentally seen on CTA. Presumptive diagnosis of spleen pathology such as abscess or infarctions. COMPARISON: CTA of the chest dated 02/22/2018. CT scan of the abdomen and pelvis dated 05/11/2017. TECHNIQUE: Real-time imaging of the spleen. FINDINGS: The spleen is enlarged, measuring approximately 15.7 cm longitudinally. No focal splenic mass or infarct is seen. No pericapsular collection is noted. The vascular hilum appears unremarkable with color Doppler imaging. IMPRESSION: Splenomegaly. Otherwise spleen is unremarkable.
[2018-02-22 16:00] VITALS: BP 152/90
--- NOTE | 2018-02-22 16:43 | RADIOLOGY REPORT ---
EXAMINATION: XR PORTABLE CHEST CLINICAL INFORMATION: Increasing O2 requirement. COMPARISON: Prior examination of same day. 02/20. TECHNIQUE: Portable frontal view of the chest was obtained. FINDINGS: There is extensive predominantly lower lobe airspace opacity similar to the most recent prior chest x-ray. The appearance is consistent with multifocal pneumonia. Some component of acute pulmonary edema is possible. Heart size cannot be assessed because of consolidation in the lower lobes. IMPRESSION: Extensive bilateral airspace disease.
--- NOTE | 2018-02-22 17:29 | Event Note ---
Event Note Event Note: WORSENING RESPIRATORY STATUS AND INTUBATION: Patient's respiratory condition seems to be worsening by minutes, with increased oxygen requirement, and now already on high flow oxygen nasal canula, respiratory rate as high as 40, coughin pink frothy sputum, she was reassessed. She has b/l extensive PNA, Rt sided PE, h/o asthma and no other medical conditions. She has been receiveing IV heparin as the only source of fluids, and she has not been eating or drinking well at all. Her kidney function is fair with BUN/Cr of 6/0.5 and she is making urine adequately. She does not have edema , and thus pulm edema is less likely. Differentials, at this time being worsening PNA, pulm edema, pulm hemorrhage due to PE, ARDS among others. The next step of ventilation would be NIV with BiPAP, but the patient has been nauseated and vomiting despite antiemetics, increasing frothy sputum, which would be a contraindication for BiPAP ventilation. Thus endotracheal intubation and mechanical ventilation was discussed with the patient, as well as her family members, which the patient and the family members both agreed upon if necessary. The patient she breathing status continued to worsen, and call was made to mechanically intubate the patient. Anesthesiologist in-hospital intubated the patient under Glidescope guidance and the patient was paralyzed, anaesthethetized, and given analgesics adequately after that. CXR after the procedure revealed the tip of ET tube just at the origin of Right mainsten brounchus so 2 cm pull was made by the Respiratory Therapist and a repeat CXR ordered. Results pending at the time of this writing. Attending Dr Leos, and family also informed along the process.
--- NOTE | 2018-02-22 18:30 | RADIOLOGY REPORT ---
EXAMINATION: XR PORTABLE CHEST CLINICAL INFORMATION: Shortness of breath. COMPARISON: Chest radiograph from earlier 02/22/2018 TECHNIQUE: Portable frontal view of the chest was obtained. FINDINGS: Endotracheal tube terminates at the origin of the right mainstem bronchus at the level of the rm. An enteric tube is also noted which terminates within the stomach. There are bilateral basal predominant pulmonary consolidations with air bronchograms. No pneumothorax. No acute osseous abnormalities. Evaluation the cardiomediastinal margins is limited due to silhouetting by surrounding pulmonary consolidation. IMPRESSION: 1. Endotracheal tube terminates at the origin of the right mainstem bronchus. Recommend retraction by at least 2 cm. 2. Bilateral basal predominant pulmonary consolidations, not significantly changed. This critical result was discussed with Dr. Isidoro Mosquera at 6:26 PM on 02/22/2018 and it was ascertained that the content and urgency of the report was understood at the time of direct communication.
--- NOTE | 2018-02-22 18:50 | ECHOCARDIOGRAM REPORT ---
HOEM WYATT Age: 22 : 1995 Gender: F Exam Date: 02/22/2018 12:57 Exam Location: [facility] Ht (in): 63 Wt (lb): 246 BSA: 2.29 BP: 140 / 84 Ordering Physician: Nicol Ruiz MD Referring Physician: Lucas Freed M.D. Technologist: Divine Barber RDCS Room Number: 108 Indications: SHORTNESS OF BREATH Rhythm: Technical Quality: Fair FINDINGS Left Ventricle Normal global left ventricular size, wall thickness, systolic function with no obvious regional wall motion abnormalities. Left ventricular ejection fraction is estimated at > 55 %. Right Ventricle Normal right ventricular size and function. Right Atrium Normal right atrial size. Left Atrium Left atrial size at the upper limits of normal. Mitral Valve Structurally normal mitral valve. Trace mitral regurgitation. Aortic Valve Structurally normal trileaflet aortic valve. No aortic stenosis. Tricuspid Valve Structurally normal tricuspid valve. Trace to mild tricuspid regurgitation. Right ventricular systolic pressure estimated to be elevated at > 50 mmHg. Pulmonic Valve Pulmonic valve not well visualized, grossly normal. Pericardium No pericardial effusion. Great Vessels Normal size aortic root. CONCLUSIONS Normal global left ventricular size, wall thickness, systolic function with no obvious regional wall motion abnormalities. Left ventricular ejection fraction is estimated at > 55 %. Normal right ventricular size and function. Left atrial size at the upper limits of normal. Right ventricular systolic pressure estimated to be elevated at > 50 mmHg. No pericardial effusion. Lucas Freed M.D. (Electronically Signed) Final Date: 22 February 2018 18:49 MEASUREMENTS (Male / Female) Normal Values 2D ECHO LV Diastolic Diameter PLAX 5.1 cm 4.2 - 5.9 / 3.9 - 5.3 cm LV Systolic Diameter PLAX 2.7 cm 2.1 - 4.0 cm LV Fractional Shortening PLAX 47.1 % 25 - 46 % LV Ejection Fraction 2D Teich 78.2 % IVS Diastolic Thickness 1.1 cm LVPW Diastolic Thickness 1.1 cm LV Relative Wall Thickness 0.4 LVOT Diameter 2.2 cm Aortic Root Diameter 2.6 cm LA Systolic Diameter LX 4.1 cm 3.0 - 4.0 / 2.7 - 3.8 cm LA Volume 34.0 cm 18 - 58 / 22 - 52 cm Ascending Aorta Diameter 2.8 cm DOPPLER AV Peak Velocity 154.0 cm/s AV Peak Gradient 9.5 mmHg AV Mean Velocity 103.0 cm/s AV Mean Gradient 5.0 mmHg AV Velocity Time Integral 32.0 cm LVOT Peak Velocity 128.0 cm/s LVOT Peak Gradient 6.6 mmHg LVOT Mean Velocity 91.0 cm/s LVOT Mean Gradient 4.0 mmHg LVOT Velocity Time Integral 28.4 cm LVOT Stroke Volume 108.0 cm AV Area Cont Eq vti 3.4 cm AV Area Cont Eq pk 3.2 cm MV Peak Velocity 132.0 cm/s MV Peak Gradient 7.0 mmHg MV Mean Velocity 73.6 cm/s MV Mean Gradient 3.0 mmHg Mitral E Point Velocity 119.0 cm/s Mitral A Point Velocity 84.9 cm/s Mitral E to A Ratio 1.4 MV PHT Velocity 139.0 cm/s MV Deceleration Calhoun 707.0 cm/s MV Pressure Half Time 59.0 ms MV Area PHT 3.7 cm MV Deceleration Time 190.0 ms TR Peak Velocity 330.0 cm/s TR Peak Gradient 43.6 mmHg Right Atrial Pressure 5.0 mmHg Pulmonary Artery Systolic Pressu 48.6 mmHg Right Ventricular Systolic Press 48.6 mmHg PV Peak Velocity 109.0 cm/s PV Peak Gradient 4.8 mmHg PV Mean Velocity 76.4 cm/s PV Mean Gradient 3.0 mmHg PV Velocity Time Integral 32.5 cm LV E' Lateral Velocity 12.7 cm/s Mitral E to LV E' Lateral Ratio 9.4 LV E' Septal Velocity 9.9 cm/s Mitral E to LV E' Septal Ratio 12.0
--- NOTE | 2018-02-22 19:22 | RADIOLOGY REPORT ---
EXAMINATION: XR PORTABLE CHEST CLINICAL INFORMATION: ET tube placement COMPARISON: Same day earlier TECHNIQUE: Portable frontal view of the chest was obtained. FINDINGS: Endotracheal tube in place now properly positioned with its tip approximately 4 cm above the rm. NG tube in place the tip obscured by the soft tissue overlap. Bilateral pulmonary opacification poorly visualized given the technique utilized. IMPRESSION: ET tube now properly positioned, exam otherwise unchanged.
--- NOTE | 2018-02-22 20:44 | Proc Note Internal Medicine ---
Medicine Procedure Procedure Date: 02/22/18 Medical Procedure(s): central venous cath place (Right IJV) Pre-Operative Diagnosis: Rt side PE with b/l extensive PNA, Intubated and required multiple IV medications Post-Operative Diagnosis: Same as above Estimated Blood Loss: scant Anesthesia: local Procedure Findings: After informed consent and a time out, a triple lumen central venous catheter was placed in Right internal jugular vein under ultrasound guidance while maintaining asepsis. Dr Diogo Urrutia supervised the procedure and later CXR was ordered for correct placement of the catheter, and to rule out any pneumothorax. CXR confirmed Rt TLC ending in mid-distal SVC and no pneumothorax is noted by the radiologist. Night team signed out the today's events. Dr Leos also informed about the TLC placement.
--- NOTE | 2018-02-22 21:23 | RADIOLOGY REPORT ---
EXAMINATION: XR PORTABLE CHEST CLINICAL INFORMATION: Acute hypoxia. Central line placement. COMPARISON: Chest radiograph dated from earlier 02/22/2018 TECHNIQUE: Portable frontal view of the chest was obtained. FINDINGS: Appropriately positioned endotracheal tube is again noted. There is a new right jugular central venous catheter which terminates in the mid to distal SVC. No pneumothorax. There are redemonstrated bilateral pulmonary consolidations which are basal predominant with mild improvement in aeration overall from the previous study. Cardiomediastinal silhouette appears within normal limits. No acute osseous abnormalities. IMPRESSION: 1. New right internal jugular central venous catheter terminates in the mid to distal SVC. No pneumothorax. 2. Redemonstrated bilateral pulmonary consolidations which are basal predominant with mild improvement in aeration overall from the prior study.
[2018-02-22 22:16] LABS: PTT 48 SEC (25-37)
[2018-02-23] VITALS: BP 136/60
[2018-02-23 00:29] LABS: ABSOLUTE BASOPHIL COUNT 0 /CUMM (0.0-0.2); ABSOLUTE EOSINOPHIL COUNT 0.1 /CUMM (0.0-0.7); ABSOLUTE GRANULOCYTE CT 16.2 /CUMM (1.4-6.5); ABSOLUTE LYMPH COUNT 0.6 /CUMM (1.2-3.4); ABSOLUTE MONOCYTE COUNT 1.2 /CUMM (0.10-0.60); BASOPHIL % 0.1 % (0.0-2.0); EOSINOPHIL % 0.5 % (0-5); GRANULOCYTE % 89.5 % (42.2-75.2); MEAN CORPUSCULAR HGB 23.5 PG (27.0-31.0); MEAN CORPUSCULAR HGB CONC 32.6 G/DL (33.0-37.0); MEAN CORPUSCULAR VOLUME 71.9 FL (81.0-99.0); MEAN PLATELET VOLUME 7.6 FL (7.4-10.4); PLATELET COUNT 342 /CUMM (130-400); RBC DISTRIBUTION WIDTH 16.3 % (11.5-14.5); RED BLOOD CELL CT 4.31 /CUMM (4.20-5.40)
[2018-02-23 06:04] LABS: ABSOLUTE BASOPHIL COUNT 0 /CUMM (0.0-0.2); ABSOLUTE EOSINOPHIL COUNT 0.1 /CUMM (0.0-0.7); ABSOLUTE GRANULOCYTE CT 15.8 /CUMM (1.4-6.5); ABSOLUTE LYMPH COUNT 0.8 /CUMM (1.2-3.4); ABSOLUTE MONOCYTE COUNT 1.6 /CUMM (0.10-0.60); BASOPHIL % 0.2 % (0.0-2.0); EOSINOPHIL % 0.4 % (0-5); GRANULOCYTE % 86.3 % (42.2-75.2); HEMATOCRIT 30.5 % (37-47); MEAN CORPUSCULAR HGB 23.4 PG (27.0-31.0); MEAN CORPUSCULAR HGB CONC 32.5 G/DL (33.0-37.0); MEAN CORPUSCULAR VOLUME 71.9 FL (81.0-99.0); MEAN PLATELET VOLUME 7.8 FL (7.4-10.4); PLATELET COUNT 334 /CUMM (130-400); RBC DISTRIBUTION WIDTH 16.2 % (11.5-14.5); RED BLOOD CELL CT 4.25 /CUMM (4.20-5.40); WHITE BLOOD CELL COUNT 18.3 /CUMM (4.8-10.8)
[2018-02-23 06:09] LABS: PTT 53 SEC (25-37)
--- NOTE | 2018-02-23 07:16 | Cons- Hematology ---
General Information and HPI Consulting Request Date of Consult: 02/23/18 Requested By: uLke Leos MD History of Present Illness: 22-year-old woman status post now admitted to the ICU with respiratory failure. Patient is intubated and paralyzed and unable to give a history. The patient apparently is doing well post when she developed respiratory distress. She is been treated for multi-lobar pneumonia and yesterday had further respiratory decompensation. CTA of the chest revealed pulmonary emboli. Patient is currently on heparin. Of note, there is made mention in the chart the may be a thrombophilic tendency in the family. Allergies/Medications Allergies: Coded Allergies: NO KNOWN ALLERGIES (NONE 02/20/18) Home Med List: Albuterol Sulfate (Proair Hfa) 90 MCG HFA.AER.AD 2 PUF INH AD PRN ASTHMA ( Reported) Albuterol Sulfate 2.5 MG/3 ML (0.083 %) VIAL.NEB 1 Vial INH/VANITA AD PRN ASTHMA (Reported) Budesonide/Formoterol Fumarate (Symbicort 160-4.5 Mcg Inhaler) 160 MCG-4.5 MCG/ ACTUATION HFA.AER.AD 2 PUF INH BID ASTHMA (Reported) Vit No.130/Iron/FA ( Tablet) 27 MG IRON-800 MCG TABLET 1 TAB PO DAILY (Reported) Valacyclovir Hydrochloride (Valtrex) 500 MG TABLET 500 MG PO DAILY HERPES ( Reported) Current Medications: Current Medications Sig/Nilsa Start time Last Medication Dose Route Stop Time Status Admin Acetaminophen 1,000 MG Q6P PRN 02/22 1130 AC N/A 1 UNIT IV Albuterol Sulfate 3 ML Q4 02/22 2200 AC 02/23 INH 0413 Albuterol Sulfate 3 ML EVERY 4 HRS/AWAKE 02/20 1600 DC 02/22 INH 1557 Albuterol Sulfate 2 PUF Q4P PRN 02/17 1830 AC 02/20 INH 0755 Alprazolam 0.25 MG ONCE ONE 02/22 1530 DC 02/22 PO 02/22 1531 1526 Azithromycin 500 MG DAILY@1700 02/21 1700 DC 02/21 Sodium Chloride 250 ML IV 1705 Ceftazidime 2,000 MG Q8H 02/22 1200 AC 02/23 IV 0421 Ceftazidime 1,000 MG Q12 02/22 1058 DC IV Ceftriaxone Sodium 1,000 MG DAILY@1600 02/21 1600 CO 02/21 IV 1549 Docusate Sodium 100 MG AT BEDTIME PRN 02/17 1415 PO Fentanyl Citrate 1,000 MCG Q10H 02/23 0400 02/23 Dextrose/Water 250 ML IV 0458 Fentanyl Citrate 100 MCG ONCE ONE 02/22 1845 DC 02/22 IV 02/22 1846 1844 Fentanyl Citrate 1,000 MCG Q24H 02/22 1800 DC 02/22 Dextrose/Water 250 ML IV 02/23 0400 1844 Fentanyl Citrate 100 MCG ONCE ONE 02/22 1745 DC 02/22 IV 02/22 1746 1841 Fluticasone 2 SPRAY DAILY 02/19 1635 02/22 Propionate DELPHINE 1026 Furosemide 20 MG ONCE ONE 02/22 1900 DC 02/22 IV 02/22 1901 1900 Furosemide 20 MG ONCE ONE 02/22 1615 DC 02/22 IV 02/22 1616 1707 Guaifenesin 600 MG BID 02/20 2100 02/22 PO 1026 Heparin Sodium 8,400 UNIT ONCE ONE 02/22 1330 DC 02/22 (Porcine) IV 02/22 1331 1333 Heparin Sodium 10,000 UNIT .STK-MED ONE 02/22 1316 DC (Porcine) IV 02/22 1317 Heparin Sodium 25,000 UNIT Q24H 02/22 0315 02/22 (Porcine) IV 2249 Sodium Chloride 500 ML Ketorolac 30 MG ONCE ONE 02/22 1015 DC 02/22 Tromethamine IV 02/22 1016 1022 Magnesium Hydroxide 30 ML DAILY NEEDED PRN 02/17 1415 PO Morphine Sulfate 2 MG ONCE ONE 02/22 2345 CAN IV 02/22 2346 Non-Formulary 0 SEE ADMIN CRITERIA 02/22 1700 DC Medication ANY Ondansetron HCl 4 MG ONCE ONE 02/22 1600 DC 02/22 IV 02/22 1601 1558 Ondansetron HCl 4 MG ONCE ONE 02/22 1130 DC 02/22 IV 02/22 1131 1130 Oxycodone/ 1 TAB Q4P PRN 02/17 1415 02/19 Acetaminophen PO 2352 Oxycodone/ 2 TAB Q4P PRN 02/17 1415 DC 02/22 Acetaminophen PO 0624 Pantoprazole Sodium 40 MG DAILY 02/22 2145 02/22 IV 2300 Propofol 1,000 MG Q12H 02/22 1715 AC 02/23 N/A 1 UNIT IV 0702 Propofol 1,000 MG .STK-MED ONE 02/22 1703 DC IV 02/22 1704 Simethicone 80 MG Q6P PRN 02/19 0500 AC 02/19 PO 1920 Trimethobenzamide HCl 200 MG ONCE ONE 02/22 1630 DC 02/22 IM 02/22 1631 1707 Vancomycin HCl 1,750 MG Q12H 02/22 1200 AC 02/23 Sodium Chloride 500 ML IV 0132 Vecuronium [place] 50 MG Q10H 02/23 0400 CAN Dextrose/Water 500 ML IV Vecuronium [place] 50 MG Q6H 02/23 0030 AC 02/23 Dextrose/Water 500 ML IV 0137 Vecuronium [place] 50 MG Q24H 02/22 1745 DC 02/22 Dextrose/Water 500 ML IV 02/23 0030 1800 Vecuronium [place] 10 MG ONCE ONE 02/22 1730 DC 02/22 IV 02/22 1731 1839 Review of Systems Review of Systems: Unobtainable Past History Medical History Blood Transfusion Hx: No Neurological: NONE EENT: NONE Cardiovascular: NONE Respiratory: asthma Gastrointestinal: NONE Hepatic: NONE Renal: NONE Musculoskeletal: NONE Psychiatric: NONE Endocrine: NONE Blood Disorders: NONE Cancer(s): NONE [employer]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 Home Primary Language: [place] Smoking Status: Never Smoked ETOH Use: denies use Illicit Drug Use: denies illicit drug use Functional Ability ADLs Independent: dressing, eating, toileting, bathing. Ambulation: independent IADLs Independent: shopping, housework, finances, food prep, telephone, transportation , medication admin. Exam & Diagnostic Data Vital Signs and I&O Vital Signs Date Time Temp Pulse Resp B/P B/P Pulse O2 O2 Flow FiO2 Mean Ox Delivery Rate 02/23 0605 100 02/23 0417 100 02/23 0400 92 Ventilator 100% 02/23 0301 85 02/23 0104 85 02/23 0000 98.7 106 20 136/60 95 Ventilator 85% 02/23 0000 95 Ventilator 85% 02/22 2219 85 02/22 2030 100 02/22 2000 91 Ventilator 100% 02/22 1730 100 02/22 1600 90 Nasal 75% Cannula 02/22 1600 98.2 88 30 152/90 92 Nasal 75% Cannula 02/22 1545 83 Nasal 5.0L Cannula 02/22 1200 93 Nasal 4.0L Cannula 02/22 1130 98.0 85 24 132/78 93 Nasal 4.0L Cannula 02/22 0825 92 Nasal 3.0L Cannula 02/22 0800 92 Nasal 3.0L Cannula Intake & Output 02/23 0800 02/23 0000 02/22 1600 Intake Total 991 Output Total 3390 300 Balance -3390 691 Intake, IV 891 Intake, Oral 100 Output, 350 Gastric Drainage Output, Urine 3040 300 Gen.: Intubated ENT: Sclera anicteric Chest: Rhonchi Cor: RRR, no extra sounds Abdomen: Soft, bowel sounds diminished, postop Extremities: Without clubbing, cyanosis, or asymmetric edema Neurology: Intubated, paralyzed Skin: No rashes Last 48 Hours of Lab Results: Laboratory Tests 02/23 02/23 02/23 0610 0550 0445 Blood Gas pH (7.35 - 7.45 PH) 7.32 L pCO2 (35 - 45 TORR) 53 H pO2 (80 - 100 TORR) 70 L HCO3 (21 - 28 MEQ/L) 26 ABG O2 Sat (Measured) (>96.0 %) 91.0 L P-50 (Temp Corrected) N Carboxyhemoglobin (1.5 - 5.0 %) 0.5 L O2 Concentration % 100 Respiration Rate (BPM) 20 O2 Delivery Method VENT Vent Mode A/C Expiratory Pressure (CMH2O/P) 10 Tidal Volume (CC) 500 Chemistry Sodium (137 - 145 mmol/L) 139 Potassium (3.5 - 5.1 mmol/L) 4.0 Chloride (98 - 107 mmol/L) 101 Carbon Dioxide (22 - 30 mmol/L) 31 H Anion Gap (5 - 16) 7 BUN (7 - 17 mg/dL) 6 L Creatinine (0.5 - 1.0 mg/dL) 0.5 Estimated GFR (>60 ml/min) > 60 Glucose (65 - 99 mg/dL) 113 H Calcium (8.4 - 10.2 mg/dL) 7.7 L Phosphorus (2.5 - 4.5 mg/dL) 5.1 H Magnesium (1.6 - 2.3 mg/dL) 1.9 Total Bilirubin (0.2 - 1.3 mg/dL) 0.5 AST (14 - 36 U/L) 27 ALT (9 - 52 U/L) 35 Albumin (3.5 - 5.0 g/dL) 2.6 L Coagulation APTT (25 - 37 SEC) 53 H Hematology CBC w Diff MAN DIFF ORDERED WBC (4.8 - 10.8 /CUMM) 18.3 H RBC (4.20 - 5.40 /CUMM) 4.25 Hgb (12.0 - 16.0 G/DL) 9.9 L Hct (37 - 47 %) 30.5 L MCV (81.0 - 99.0 FL) 71.9 L MCH (27.0 - 31.0 PG) 23.4 L MCHC (33.0 - 37.0 G/DL) 32.5 L RDW (11.5 - 14.5 %) 16.2 H Plt Count (130 - 400 /CUMM) 334 MPV (7.4 - 10.4 FL) 7.8 Gran % (42.2 - 75.2 %) 86.3 H Lymphocytes % (20.5 - 51.1 %) 4.5 L Monocytes % (1.7 - 9.3 %) 8.6 Eosinophils % (0 - 5 %) 0.4 Basophils % (0.0 - 2.0 %) 0.2 Absolute Granulocytes (1.4 - 6.5 /CUMM) 15.8 H Segmented Neutrophils (42.2 - 75.2 %) 91 H Band Neutrophils (0.0 - 5.0 %) 1 Absolute Lymphocytes (1.2 - 3.4 /CUMM) 0.8 L Lymphocytes (20.5 - 51.1 %) 5 L Monocytes (1.7 - 9.3 %) 3 Absolute Monocytes (0.10 - 0.60 /CUMM) 1.6 H Absolute Eosinophils (0.0 - 0.7 /CUMM) 0.1 Absolute Basophils (0.0 - 0.2 /CUMM) 0 Platelet Estimate (ADEQUATE) ADEQUATE Polychromasia 1+ Hypochromic-Microcytic 1+ Poikilocytosis 1+ Basophilic Stippling SLIGHT Anisocytosis 1+ Microcytic Cells 1+ Ovalocytes 1+ Miscellaneous Phlebotomy Draw Site RIGHT RADIAL Other Body Source Fld Total RBCs Counted (%) 100 02/23 02/22 02/22 02/22 02/22 0000 2145 1850 1830 1700 Blood Gas pH (7.35 - 7.45 PH) 7.37 pCO2 (35 - 45 TORR) 38 pO2 (80 - 100 TORR) 84 HCO3 (21 - 28 MEQ/L) 22 ABG O2 Sat (Measured) (>96.0 %) 94.0 L P-50 (Temp Corrected) N Carboxyhemoglobin (1.5 - 5.0 %) 0.5 L O2 Concentration % 100% Temperature (97.0 - 100.0 FARH) 98.0 Respiration Rate (BPM) 20 O2 Delivery Method ESPRIT Vent Mode AC Expiratory Pressure (CMH2O/P) 10 Tidal Volume (CC) 500 Chemistry Troponin I (< 0.11 ng/ml) 0.06 0.02 Coagulation APTT (25 - 37 SEC) 48 H Hematology CBC w Diff Cancelled WBC Cancelled RBC Cancelled Hgb Cancelled Hct Cancelled MCV Cancelled MCH Cancelled MCHC Cancelled RDW Cancelled Plt Count Cancelled MPV Cancelled Miscellaneous Phlebotomy Draw Site RIGHT RADIAL 02/22 02/22 02/22 02/22 1030 0500 0500 0020 Chemistry Sodium (137 - 145 mmol/L) 141 Potassium (3.5 - 5.1 mmol/L) 3.5 Chloride (98 - 107 mmol/L) 104 Carbon Dioxide (22 - 30 mmol/L) 25 Anion Gap (5 - 16) 11 BUN (7 - 17 mg/dL) 6 L Creatinine (0.5 - 1.0 mg/dL) 0.5 Estimated GFR (>60 ml/min) > 60 BUN/Creatinine Ratio (7 - 25 %) 12.0 Magnesium (1.6 - 2.3 mg/dL) 1.9 Iron (37 - 170 ug/dL) 32 L TIBC (265 - 497 ug/dL) 425 Ferritin (6.24 - 137 ng/mL) 45.1 Total Bilirubin (0.2 - 1.3 mg/dL) 0.7 Direct Bilirubin (< 0.4 mg/dL) 0.1 AST (14 - 36 U/L) 39 H ALT (9 - 52 U/L) 38 Alkaline Phosphatase (<127 U/L) 153 H Troponin I (< 0.11 ng/ml) 0.03 0.01 Total Protein (6.3 - 8.2 g/dL) 5.8 L Albumin (3.5 - 5.0 g/dL) 3.0 L Coagulation PT (9.4 - 12.5 SEC) 11.3 INR (0.90 - 1.19) 1.04 APTT (25 - 37 SEC) 34 30 Hematology CBC w Diff NO MAN DIFF REQ WBC (4.8 - 10.8 /CUMM) 12.4 H RBC (4.20 - 5.40 /CUMM) 4.21 Hgb (12.0 - 16.0 G/DL) 10.0 L Hct (37 - 47 %) 30.2 L MCV (81.0 - 99.0 FL) 71.7 L MCH (27.0 - 31.0 PG) 23.7 L MCHC (33.0 - 37.0 G/DL) 33.0 RDW (11.5 - 14.5 %) 15.9 H Plt Count (130 - 400 /CUMM) 288 MPV (7.4 - 10.4 FL) 8.0 Gran % (42.2 - 75.2 %) 83.6 H Lymphocytes % (20.5 - 51.1 %) 6.0 L Monocytes % (1.7 - 9.3 %) 7.6 Eosinophils % (0 - 5 %) 2.5 Basophils % (0.0 - 2.0 %) 0.3 Absolute Granulocytes (1.4 - 6.5 /CUMM) 10.4 H Absolute Lymphocytes (1.2 - 3.4 /CUMM) 0.7 L Absolute Monocytes (0.10 - 0.60 /CUMM) 0.9 H Absolute Eosinophils (0.0 - 0.7 /CUMM) 0.3 Absolute Basophils (0.0 - 0.2 /CUMM) 0 02/22 02/22 0020 0000 Blood Gas pH (7.35 - 7.45 PH) 7.48 H pCO2 (35 - 45 TORR) 31 L pO2 (80 - 100 TORR) 67 L HCO3 (21 - 28 MEQ/L) 22 ABG O2 Sat (Measured) (>96.0 %) 93.0 L P-50 (Temp Corrected) N Carboxyhemoglobin (1.5 - 5.0 %) 0.4 L O2 Concentration % RA Chemistry Sodium (137 - 145 mmol/L) 139 Potassium (3.5 - 5.1 mmol/L) 3.2 L Chloride (98 - 107 mmol/L) 103 Carbon Dioxide (22 - 30 mmol/L) 26 Anion Gap (5 - 16) 10 BUN (7 - 17 mg/dL) 6 L Creatinine (0.5 - 1.0 mg/dL) 0.6 Estimated GFR (>60 ml/min) > 60 BUN/Creatinine Ratio (7 - 25 %) 10.0 Phosphorus (2.5 - 4.5 mg/dL) 4.7 H Magnesium (1.6 - 2.3 mg/dL) 2.0 Bcg-Q-Sjbnphhlhms Pept (<125 pg/mL) 1090 H Hematology CBC w Diff MAN DIFF ORDERED WBC (4.8 - 10.8 /CUMM) 18.0 H RBC (4.20 - 5.40 /CUMM) 4.31 Hgb (12.0 - 16.0 G/DL) 10.1 L Hct (37 - 47 %) 31.0 L MCV (81.0 - 99.0 FL) 71.9 L MCH (27.0 - 31.0 PG) 23.5 L MCHC (33.0 - 37.0 G/DL) 32.6 L RDW (11.5 - 14.5 %) 16.3 H Plt Count (130 - 400 /CUMM) 342 MPV (7.4 - 10.4 FL) 7.6 Gran % (42.2 - 75.2 %) 89.5 H Lymphocytes % (20.5 - 51.1 %) 3.4 L Monocytes % (1.7 - 9.3 %) 6.5 Eosinophils % (0 - 5 %) 0.5 Basophils % (0.0 - 2.0 %) 0.1 Absolute Granulocytes (1.4 - 6.5 /CUMM) 16.2 H Segmented Neutrophils (42.2 - 75.2 %) 91 H Band Neutrophils (0.0 - 5.0 %) 2 Absolute Lymphocytes (1.2 - 3.4 /CUMM) 0.6 L Lymphocytes (20.5 - 51.1 %) 3 L Monocytes (1.7 - 9.3 %) 2 Absolute Monocytes (0.10 - 0.60 /CUMM) 1.2 H Eosinophils (0 - 5.0 %) 1 Absolute Eosinophils (0.0 - 0.7 /CUMM) 0.1 Basophils (0.0 - 2.0 %) 1 Absolute Basophils (0.0 - 0.2 /CUMM) 0 Platelet Estimate (ADEQUATE) ADEQUATE Polychromasia 1+ Hypochromic-Microcytic 1+ Poikilocytosis 1+ Basophilic Stippling SLIGHT Anisocytosis 1+ Microcytic Cells 1+ Ovalocytes 1+ Stomatocytes FEW Miscellaneous Phlebotomy Draw Site RIGHT RADIAL Other Body Source Fld Total RBCs Counted (%) 100 02/21 1116 Hematology CBC w Diff NO MAN DIFF REQ WBC (4.8 - 10.8 /CUMM) 11.6 H RBC (4.20 - 5.40 /CUMM) 3.98 L Hgb (12.0 - 16.0 G/DL) 9.5 L Hct (37 - 47 %) 28.7 L MCV (81.0 - 99.0 FL) 72.1 L MCH (27.0 - 31.0 PG) 23.8 L MCHC (33.0 - 37.0 G/DL) 33.0 RDW (11.5 - 14.5 %) 15.8 H Plt Count (130 - 400 /CUMM) 248 MPV (7.4 - 10.4 FL) 7.4 Gran % (42.2 - 75.2 %) 81.3 H Lymphocytes % (20.5 - 51.1 %) 8.3 L Monocytes % (1.7 - 9.3 %) 8.3 Eosinophils % (0 - 5 %) 1.8 Basophils % (0.0 - 2.0 %) 0.3 Absolute Granulocytes (1.4 - 6.5 /CUMM) 9.4 H Absolute Lymphocytes (1.2 - 3.4 /CUMM) 1.0 L Absolute Monocytes (0.10 - 0.60 /CUMM) 1.0 H Absolute Eosinophils (0.0 - 0.7 /CUMM) 0.2 Absolute Basophils (0.0 - 0.2 /CUMM) 0 Imaging/Other Studies: CPI-ebyly-gbpaurnoc emboli, multi-lobar pneumonia, atypical appearance of spleen , prominent lymphadenopathy Assessment/Plan Assessment: Respiratory failure-thought secondary both to pneumonia and pulmonary embolism ? Hypercoagulable state-family history may be remarkable for thrombophilia. I am uncertain as to the findings of the CAT scan with regard to her spleen and prominent lymphadenopathy. A hypercoagulable workup is certainly indicated which would include extensive blood work, Doppler ultrasound of the lower extremities and possible workup of lymphadenopathy/atypical spleen. The patient has a therapeutic PTT ruling out anti-thrombin 3 deficiency. Heparin, therefore is an active agent in the immediate anticoagulation.. Cardiology/pulmonary services need to comment on the clot burden and its effect on cardiac status...? Lytic therapy Probable iron deficiency Recommendations: .. Consult Acknowledgment - Thank you for your consult request.
--- NOTE | 2018-02-23 07:25 | PN- Resident CRCU ---
Naya Jackson Julian Girish 02/23/18 0725: Subjective HPI/CRCU Issues: Patient was seen and examined at bedside. On vent, sedated. satting 95% on PEEP 1- amd Tv 500. Objective Vital Signs & I&O Last 8 Hrs of Vitals and I&O: Intake & Output 02/23 1600 Intake Total Output Total Balance Patient 113.361 kg Weight Exam General Appearance: sedated, intubated Head: atraumatic, normal appearance Respiratory: decreased breath sounds, On vent Cardiovascular: regular rate/rhythm Gastrointestinal: soft, non-tender, decreased BS Extremities: no edema Current Medications: Current Medications Sig/Nilsa Start time Last Medication Dose Route Stop Time Status Admin Acetaminophen 1,000 MG Q6P PRN 02/22 1130 AC N/A 1 UNIT IV Albuterol Sulfate 3 ML Q4 02/22 2200 AC 02/23 INH 0802 Albuterol Sulfate 3 ML EVERY 4 HRS/AWAKE 02/20 1600 DC 02/22 INH 1557 Albuterol Sulfate 2 PUF Q4P PRN 02/17 1830 AC 02/20 INH 0755 Alprazolam 0.25 MG ONCE ONE 02/22 1530 DC 02/22 PO 02/22 1531 1526 Azithromycin 500 MG DAILY@1700 02/21 1700 DC 02/21 Sodium Chloride 250 ML IV 1705 Ceftazidime 2,000 MG Q8H 02/22 1200 AC 02/23 IV 0421 Ceftazidime 1,000 MG Q12 02/22 1058 DC IV Ceftriaxone Sodium 1,000 MG DAILY@1600 02/21 1600 DC 02/21 IV 1549 Docusate Sodium 100 MG AT BEDTIME PRN 02/17 1415 AC PO Fentanyl Citrate 1,000 MCG Q10H 02/23 0400 AC 02/23 Dextrose/Water 250 ML IV 0458 Fentanyl Citrate 100 MCG ONCE ONE 02/22 1845 DC 02/22 IV 02/22 1846 1844 Fentanyl Citrate 1,000 MCG Q24H 02/22 1800 DC 02/22 Dextrose/Water 250 ML IV 02/23 0400 1844 Fentanyl Citrate 100 MCG ONCE ONE 02/22 1745 DC 02/22 IV 02/22 1746 1841 Fluticasone 2 SPRAY DAILY 02/19 1635 AC 02/22 Propionate DELPHINE 1026 Furosemide 20 MG ONCE ONE 02/22 1900 DC 02/22 IV 02/22 1901 1900 Furosemide 20 MG ONCE ONE 02/22 1615 DC 02/22 IV 02/22 1616 1707 Guaifenesin 600 MG BID 02/20 2100 AC 02/22 PO 1026 Heparin Sodium 4,480 UNIT ONCE ONE 02/23 0700 DC 02/23 (Porcine) IV 02/23 0701 0805 Heparin Sodium 8,400 UNIT ONCE ONE 02/22 1330 DC 02/22 (Porcine) IV 02/22 1331 1333 Heparin Sodium 10,000 UNIT .STK-MED ONE 02/22 1316 DC (Porcine) IV 02/22 1317 Heparin Sodium 25,000 UNIT Q24H 02/22 0315 AC 02/22 (Porcine) IV 2249 Sodium Chloride 500 ML Ketorolac 30 MG ONCE ONE 02/22 1015 DC 02/22 Tromethamine IV 02/22 1016 1022 Magnesium Hydroxide 30 ML DAILY NEEDED PRN 02/17 1415 AC PO Morphine Sulfate 2 MG ONCE ONE 02/22 2345 CAN IV 02/22 2346 Non-Formulary 0 SEE ADMIN CRITERIA 02/22 1700 DC Medication ANY Ondansetron HCl 4 MG ONCE ONE 02/22 1600 DC 02/22 IV 02/22 1601 1558 Ondansetron HCl 4 MG ONCE ONE 02/22 1130 DC 02/22 IV 02/22 1131 1130 Oxycodone/ 1 TAB Q4P PRN 02/17 1415 02/19 Acetaminophen PO 2352 Oxycodone/ 2 TAB Q4P PRN 02/17 1415 DC 02/22 Acetaminophen PO 0624 Pantoprazole Sodium 40 MG DAILY 02/22 2145 02/23 IV 0805 Propofol 1,000 MG Q12H 02/22 1715 02/23 N/A 1 UNIT IV 0702 Propofol 1,000 MG .STK-MED ONE 02/22 1703 DC IV 02/22 1704 Simethicone 80 MG Q6P PRN 02/19 0500 02/19 PO 1920 Trimethobenzamide HCl 200 MG ONCE ONE 02/22 1630 DC 02/22 IM 02/22 1631 1707 Vancomycin HCl 1,750 MG Q12H 02/22 1200 AC 02/23 Sodium Chloride 500 ML IV 0132 Vecuronium [place] 50 MG Q10H 02/23 0400 CAN Dextrose/Water 500 ML IV Vecuronium [place] 50 MG Q6H 02/23 0030 AC 02/23 Dextrose/Water 500 ML IV 0801 Vecuronium [place] 50 MG Q24H 02/22 1745 DC 02/22 Dextrose/Water 500 ML IV 02/23 0030 1800 Vecuronium [place] 10 MG ONCE ONE 02/22 1730 DC 02/22 IV 02/22 1731 1839 Impression/Plan Impression/Problem List Impression: 22 yo F s/p on 02/17/18, Rh negative blood type s/p RhoGam on 11/20, previous miscarriage at 10 weeks of geatation and family history ( grandfather) of blood clots, asthma, was transferred from [facility] to telemetry initially after finding the patient to have multilobar pneumonia, and last night with worsening hypoxia/dyspnea, a CT angiogram proven pulmonary embolism. This morning, she appeared more dyspneic and for closer observation, she was transferred to the ICU. Patient is currently being treated in the ICU for the following issues: VS: stable overnight, desatting interminttently however now resolved. In/Out/24hrs: Sedation: Propofol + Fentanyl Vent Setting: A/C Tv 500, PEEP 10, satting 95% [id number]: NGTD RESPIRATORY #Rt sided PE - Continue IV Heparin gtt, trc/nebs PRN, O2 to maintain SpO2>92% #Multifocal PNA/ARDS - Brodened IV abx from (Unasyn initially) CTZ and Azithromycin to IV Vanc and Ceftaz for broader coverage. Conitnue trc/nebs as mentioned above. Await cultures - Remained on Vent A/C. - Pending next level intervention if ABG/CXR worsened, may need ECMO. INFECTIOUS DISEASE #Multilobar PNA/ARDS, on IV abx, as above CARDIOLOGY - elevated RVSP >50mgHg, likely from ARDS HEMATOLOGY #Rt sided PE Patient has h/o miscarriage and family h/o blood clots in her grandfather. This could be genetic or due to recent surgery//obesity/decreased activity as multiple risk-factors working together. - Pending Heme recommendation this AM. METABOLIC No issues - Received 20meq of KCl x 1 - Now replated to 4.0 on latest lab. ALIMENTARY No issues NEPHROLOGY No issues, BUN/Cr today is 6/0.5 NEUROLOGY No issues, except mild anxiety. She received one dose of Tab Alprazolam 0.25mg while watching for resp status closely. CHRONIC ISSUES OTHERWISE: Asthma being treated as above resp issues. MISC: Diet: NPO on vent DVT prophylaxis: IV Heparin, ALPS Code status: Full code IV access: Peripheral + RIJ Family update: Done as the patient was interview alongside (patient's aunt was spoken with) Problem List: 1. Multifocal pneumonia 2. Previous section 3. Otitis media 4. Pulmonary emboli Pain Ratin Tomorrow's Labs & Rationales: ICU/CBC/TG Luke Leos MD 02/23/18 1044: Impression/Plan Plan DVT/Prophylaxis: pharmacological Attending MD Review Statement Attending Sign Off Attending Cosign Statement: I have: examined this patient, [facility], personally reviewd images, discussd w/resident/PA/SCOUTS, discussed mgmt plan w/diana, discussed mgmt plan w/CM, discussed mgmt plan w/pt, agreed w/resident/PA/SCOUTS, amended to note. Other Findings: Impression 22 year old woman * s/p [id number] hypoxemic respiratory failure - refractory hypoxemic requiring high PEEP, consistent with ARDS - differential includes PE (confirmed) and Multifocal pna - however amniotic fluid embolism is in the differential Plan Respiratory -mechanical ventilation -will obtain a-line -[facility] contacted for consideration of ECMO, will have ongoing communication ID -continue broad spectrum abx -f/u cultures CVS -cardiology consultation is appreciated -ECHO with elevated RVSP however normal function Heme -heparin gtt -hematology consultation appreciated -no indication for lysis Metabolic -ins/outs -monitor creatinine -monitor electrolytes Alimentary -NPO Neuro -sedation and paralysis to achieve ventilatory control TTS 70 min D/w mother, housestaff and nursing
[2018-02-23 08:00] VITALS: BP 120/70
--- NOTE | 2018-02-23 10:24 | Cons- Cardiology ---
General Information and HPI Consulting Request Date of Consult: 02/23/18 Requested By: Luke Leos MD Reason for Consult: PE Source of Information: old records Exam Limitations: unable to give history, clinical condition History of Present Illness: Patient was intubated and sedated at the time of this consultation and the HPI is obtained from the medical record. This is a 22-year-old female who is status post on 02/17/2018 which was complicated by evidence of subsequent multilobar pneumonia; she subsequently developed worsening hypoxia/dyspnea along with complaints of pleuritic chest pain and was found to have evidence of pulmonary embolism on CT scan. Due to her worsening respiratory status she was intubated. Per report she does not have any known history of cardiac pathology but does have a history of prior miscarriage and a history of thrombosis in her family. Allergies/Medications Allergies: Coded Allergies: NO KNOWN ALLERGIES (NONE 02/20/18) Home Med List: Albuterol Sulfate (Proair Hfa) 90 MCG HFA.AER.AD 2 PUF INH AD PRN ASTHMA ( Reported) Albuterol Sulfate 2.5 MG/3 ML (0.083 %) VIAL.NEB 1 Vial INH/VANITA AD PRN ASTHMA (Reported) Budesonide/Formoterol Fumarate (Symbicort 160-4.5 Mcg Inhaler) 160 MCG-4.5 MCG/ ACTUATION HFA.AER.AD 2 PUF INH BID ASTHMA (Reported) Vit No.130/Iron/FA ( Tablet) 27 MG IRON-800 MCG TABLET 1 TAB PO DAILY (Reported) Valacyclovir Hydrochloride (Valtrex) 500 MG TABLET 500 MG PO DAILY HERPES ( Reported) Current Medications: Current Medications Sig/Nilsa Start time Last Medication Dose Route Stop Time Status Admin Acetaminophen 1,000 MG Q6P PRN 02/22 1130 AC N/A 1 UNIT IV Albuterol Sulfate 3 ML Q4 02/22 2200 AC 02/23 INH 0802 Albuterol Sulfate 3 ML EVERY 4 HRS/AWAKE 02/20 1600 DC 02/22 INH 1557 Albuterol Sulfate 2 PUF Q4P PRN 02/17 1830 AC 02/20 INH 0755 Alprazolam 0.25 MG ONCE ONE 02/22 1530 DC 02/22 PO 02/22 1531 1526 Azithromycin 500 MG DAILY@1700 02/21 1700 DC 02/21 Sodium Chloride 250 ML IV 1705 Ceftazidime 2,000 MG Q8H 02/22 1200 AC 02/23 IV 0421 Ceftazidime 1,000 MG Q12 02/22 1058 DC IV Ceftriaxone Sodium 1,000 MG DAILY@1600 02/21 1600 PR 02/21 IV 1549 Docusate Sodium 100 MG AT BEDTIME PRN 02/17 1415 AC PO Fentanyl Citrate 1,000 MCG Q10H 02/23 0400 AC 02/23 Dextrose/Water 250 ML IV 0458 Fentanyl Citrate 100 MCG ONCE ONE 02/22 1845 DC 02/22 IV 02/22 1846 1844 Fentanyl Citrate 1,000 MCG Q24H 02/22 1800 DC 02/22 Dextrose/Water 250 ML IV 02/23 0400 1844 Fentanyl Citrate 100 MCG ONCE ONE 02/22 1745 PR 02/22 IV 02/22 1746 1841 Fluticasone 2 SPRAY DAILY 02/19 1635 02/22 Propionate DELPHINE 1026 Furosemide 20 MG ONCE ONE 02/22 1900 DC 02/22 IV 02/22 1901 1900 Furosemide 20 MG ONCE ONE 02/22 1615 DC 02/22 IV 02/22 1616 1707 Guaifenesin 600 MG BID 02/20 2100 02/22 PO 1026 Heparin Sodium 4,480 UNIT ONCE ONE 02/23 0700 DC 02/23 (Porcine) IV 02/23 0701 0805 Heparin Sodium 8,400 UNIT ONCE ONE 02/22 1330 DC 02/22 (Porcine) IV 02/22 1331 1333 Heparin Sodium 10,000 UNIT .STK-MED ONE 02/22 1316 DC (Porcine) IV 02/22 1317 Heparin Sodium 25,000 UNIT Q24H 02/22 0315 02/22 (Porcine) IV 2249 Sodium Chloride 500 ML Ketorolac 30 MG ONCE ONE 02/22 1015 DC 02/22 Tromethamine IV 02/22 1016 1022 Magnesium Hydroxide 30 ML DAILY NEEDED PRN 02/17 1415 AC PO Morphine Sulfate 2 MG ONCE ONE 02/22 2345 CAN IV 02/22 2346 Non-Formulary 0 SEE ADMIN CRITERIA 02/22 1700 DC Medication ANY Ondansetron HCl 4 MG ONCE ONE 02/22 1600 DC 02/22 IV 02/22 1601 1558 Ondansetron HCl 4 MG ONCE ONE 02/22 1130 DC 02/22 IV 02/22 1131 1130 Oxycodone/ 1 TAB Q4P PRN 02/17 1415 02/19 Acetaminophen PO 2352 Oxycodone/ 2 TAB Q4P PRN 02/17 1415 PR 02/22 Acetaminophen PO 0624 Pantoprazole Sodium 40 MG DAILY 02/22 2145 02/23 IV 0805 Propofol 1,000 MG Q3H 02/23 0945 N/A 1 UNIT IV Propofol 1,000 MG .STK-MED ONE 02/23 0118 DC IV 02/23 0119 Propofol 1,000 MG Q12H 02/22 1715 DC 02/23 N/A 1 UNIT IV 0702 Propofol 1,000 MG .STK-MED ONE 02/22 1703 DC IV 02/22 1704 Simethicone 80 MG Q6P PRN 02/19 0500 02/19 PO 1920 Trimethobenzamide HCl 200 MG ONCE ONE 02/22 1630 DC 02/22 IM 02/22 1631 1707 Vancomycin HCl 1,750 MG Q12H 02/22 1200 02/23 Sodium Chloride 500 ML IV 0132 Vecuronium [place] 50 MG Q10H 02/23 0400 CAN Dextrose/Water 500 ML IV Vecuronium [place] 50 MG Q6H 02/23 0030 AC 02/23 Dextrose/Water 500 ML IV 0801 Vecuronium [place] 50 MG Q24H 02/22 1745 PR 02/22 Dextrose/Water 500 ML IV 02/23 0030 1800 Vecuronium [place] 10 MG ONCE ONE 02/22 1730 DC 02/22 IV 02/22 1731 1839 Review of Systems Review of Systems: Unable to obtain Past History Medical History Blood Transfusion Hx: No Neurological: NONE EENT: NONE Cardiovascular: NONE Respiratory: asthma Gastrointestinal: NONE Hepatic: NONE Renal: NONE Musculoskeletal: NONE Psychiatric: NONE Endocrine: NONE Blood Disorders: NONE Cancer(s): 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 Home Primary Language: Azeri Smoking Status: Never Smoked ETOH Use: denies use Illicit Drug Use: denies illicit drug use Functional Ability ADLs Independent: dressing, eating, toileting, bathing. Ambulation: independent IADLs Independent: shopping, housework, finances, food prep, telephone, transportation , medication admin. Exam & Diagnostic Data Vital Signs and I&O Vital Signs Date Time Temp Pulse Resp B/P B/P Pulse O2 O2 Flow FiO2 Mean Ox Delivery Rate 02/23 0802 100 02/23 0800 98.1 90 20 120/70 96 Ventilator 100% 02/23 0800 96 Ventilator 100% 02/23 0605 100 02/23 0417 100 02/23 0400 92 Ventilator 100% 02/23 0301 85 02/23 0104 85 02/23 0000 98.7 106 20 136/60 95 Ventilator 85% 02/23 0000 95 Ventilator 85% 02/22 2219 85 02/22 2030 100 02/22 2000 91 Ventilator 100% 02/22 1730 100 02/22 1600 90 Nasal 75% Cannula 02/22 1600 98.2 88 30 152/90 92 Nasal 75% Cannula 02/22 1545 83 Nasal 5.0L Cannula 02/22 1200 93 Nasal 4.0L Cannula 02/22 1130 98.0 85 24 132/78 93 Nasal 4.0L Cannula Intake & Output 02/23 1600 02/23 0800 02/23 0000 02/22 1600 02/22 0800 02/22 0000 Intake Total 1697 991 180 Output Total 580 3390 300 Balance 1117 -3390 691 180 Intake, IV 1697 891 60 Intake, Oral 100 120 Output, 50 350 Gastric Drainage Output, Urine 530 3040 300 Patient 250 lb 249 lb 247 lb Weight Weight Bed scale Bed scale Measurement Method Physical Exam: General: Intubated Eyes: No obvious scleral icterus. HEENT: No jugular venous distention or abnormal jugular venous pulsations. Cardiovascular: Normal intensity S1/S2. Regular Respiratory: Decreased air entry bilaterally Abdomen: Soft, mildly distended, status post Musculoskeletal: No clubbing noted Skin: warm Neurologic: Sedated Labs/Juan F Results: Laboratory Tests 02/23 02/23 02/23 0610 0550 0445 Blood Gas pH (7.35 - 7.45 PH) 7.32 L pCO2 (35 - 45 TORR) 53 H pO2 (80 - 100 TORR) 70 L HCO3 (21 - 28 MEQ/L) 26 ABG O2 Sat (Measured) (>96.0 %) 91.0 L P-50 (Temp Corrected) N Carboxyhemoglobin (1.5 - 5.0 %) 0.5 L O2 Concentration % 100 Respiration Rate (BPM) 20 O2 Delivery Method VENT Vent Mode A/C Expiratory Pressure (CMH2O/P) 10 Tidal Volume (CC) 500 Chemistry Sodium (137 - 145 mmol/L) 139 Potassium (3.5 - 5.1 mmol/L) 4.0 Chloride (98 - 107 mmol/L) 101 Carbon Dioxide (22 - 30 mmol/L) 31 H Anion Gap (5 - 16) 7 BUN (7 - 17 mg/dL) 6 L Creatinine (0.5 - 1.0 mg/dL) 0.5 Estimated GFR (>60 ml/min) > 60 Glucose (65 - 99 mg/dL) 113 H Calcium (8.4 - 10.2 mg/dL) 7.7 L Phosphorus (2.5 - 4.5 mg/dL) 5.1 H Magnesium (1.6 - 2.3 mg/dL) 1.9 Total Bilirubin (0.2 - 1.3 mg/dL) 0.5 AST (14 - 36 U/L) 27 ALT (9 - 52 U/L) 35 Albumin (3.5 - 5.0 g/dL) 2.6 L Triglycerides (<150 mg/dL) 145 Cholesterol (<200 MG/DL) 141 LDL Cholesterol, Calc (65 - 129 mg/dL) 67 HDL Cholesterol (40 - 60 mg/dL) 45 Cholesterol/HDL Ratio (0.00 - 4.23 %) 3 Lipase (23 - 300 U/L) 40 Coagulation APTT (25 - 37 SEC) 53 H Hematology CBC w Diff MAN DIFF ORDERED WBC (4.8 - 10.8 /CUMM) 18.3 H RBC (4.20 - 5.40 /CUMM) 4.25 Hgb (12.0 - 16.0 G/DL) 9.9 L Hct (37 - 47 %) 30.5 L MCV (81.0 - 99.0 FL) 71.9 L MCH (27.0 - 31.0 PG) 23.4 L MCHC (33.0 - 37.0 G/DL) 32.5 L RDW (11.5 - 14.5 %) 16.2 H Plt Count (130 - 400 /CUMM) 334 MPV (7.4 - 10.4 FL) 7.8 Gran % (42.2 - 75.2 %) 86.3 H Lymphocytes % (20.5 - 51.1 %) 4.5 L Monocytes % (1.7 - 9.3 %) 8.6 Eosinophils % (0 - 5 %) 0.4 Basophils % (0.0 - 2.0 %) 0.2 Absolute Granulocytes (1.4 - 6.5 /CUMM) 15.8 H Segmented Neutrophils (42.2 - 75.2 %) 91 H Band Neutrophils (0.0 - 5.0 %) 1 Absolute Lymphocytes (1.2 - 3.4 /CUMM) 0.8 L Lymphocytes (20.5 - 51.1 %) 5 L Monocytes (1.7 - 9.3 %) 3 Absolute Monocytes (0.10 - 0.60 /CUMM) 1.6 H Absolute Eosinophils (0.0 - 0.7 /CUMM) 0.1 Absolute Basophils (0.0 - 0.2 /CUMM) 0 Platelet Estimate (ADEQUATE) ADEQUATE Polychromasia 1+ Hypochromic-Microcytic 1+ Poikilocytosis 1+ Basophilic Stippling SLIGHT Anisocytosis 1+ Microcytic Cells 1+ Ovalocytes 1+ Miscellaneous Phlebotomy Draw Site RIGHT RADIAL Other Body Source Fld Total RBCs Counted (%) 100 02/23 02/22 02/22 02/22 02/22 0000 2145 1850 1830 1700 Blood Gas pH (7.35 - 7.45 PH) 7.37 pCO2 (35 - 45 TORR) 38 pO2 (80 - 100 TORR) 84 HCO3 (21 - 28 MEQ/L) 22 ABG O2 Sat (Measured) (>96.0 %) 94.0 L P-50 (Temp Corrected) N Carboxyhemoglobin (1.5 - 5.0 %) 0.5 L O2 Concentration % 100% Temperature (97.0 - 100.0 FARH) 98.0 Respiration Rate (BPM) 20 O2 Delivery Method ESPRIT Vent Mode AC Expiratory Pressure (CMH2O/P) 10 Tidal Volume (CC) 500 Chemistry Troponin I (< 0.11 ng/ml) 0.06 0.02 Coagulation APTT (25 - 37 SEC) 48 H Hematology CBC w Diff Cancelled WBC Cancelled RBC Cancelled Hgb Cancelled Hct Cancelled MCV Cancelled MCH Cancelled MCHC Cancelled RDW Cancelled Plt Count Cancelled MPV Cancelled Miscellaneous Phlebotomy Draw Site RIGHT RADIAL 02/22 02/22 02/22 02/22 1030 0500 0500 0020 Chemistry Sodium (137 - 145 mmol/L) 141 Potassium (3.5 - 5.1 mmol/L) 3.5 Chloride (98 - 107 mmol/L) 104 Carbon Dioxide (22 - 30 mmol/L) 25 Anion Gap (5 - 16) 11 BUN (7 - 17 mg/dL) 6 L Creatinine (0.5 - 1.0 mg/dL) 0.5 Estimated GFR (>60 ml/min) > 60 BUN/Creatinine Ratio (7 - 25 %) 12.0 Magnesium (1.6 - 2.3 mg/dL) 1.9 Iron (37 - 170 ug/dL) 32 L TIBC (265 - 497 ug/dL) 425 Ferritin (6.24 - 137 ng/mL) 45.1 Total Bilirubin (0.2 - 1.3 mg/dL) 0.7 Direct Bilirubin (< 0.4 mg/dL) 0.1 AST (14 - 36 U/L) 39 H ALT (9 - 52 U/L) 38 Alkaline Phosphatase (<127 U/L) 153 H Troponin I (< 0.11 ng/ml) 0.03 0.01 Total Protein (6.3 - 8.2 g/dL) 5.8 L Albumin (3.5 - 5.0 g/dL) 3.0 L Coagulation PT (9.4 - 12.5 SEC) 11.3 INR (0.90 - 1.19) 1.04 APTT (25 - 37 SEC) 34 30 Hematology CBC w Diff NO MAN DIFF REQ WBC (4.8 - 10.8 /CUMM) 12.4 H RBC (4.20 - 5.40 /CUMM) 4.21 Hgb (12.0 - 16.0 G/DL) 10.0 L Hct (37 - 47 %) 30.2 L MCV (81.0 - 99.0 FL) 71.7 L MCH (27.0 - 31.0 PG) 23.7 L MCHC (33.0 - 37.0 G/DL) 33.0 RDW (11.5 - 14.5 %) 15.9 H Plt Count (130 - 400 /CUMM) 288 MPV (7.4 - 10.4 FL) 8.0 Gran % (42.2 - 75.2 %) 83.6 H Lymphocytes % (20.5 - 51.1 %) 6.0 L Monocytes % (1.7 - 9.3 %) 7.6 Eosinophils % (0 - 5 %) 2.5 Basophils % (0.0 - 2.0 %) 0.3 Absolute Granulocytes (1.4 - 6.5 /CUMM) 10.4 H Absolute Lymphocytes (1.2 - 3.4 /CUMM) 0.7 L Absolute Monocytes (0.10 - 0.60 /CUMM) 0.9 H Absolute Eosinophils (0.0 - 0.7 /CUMM) 0.3 Absolute Basophils (0.0 - 0.2 /CUMM) 0 02/22 02/22 0020 0000 Blood Gas pH (7.35 - 7.45 PH) 7.48 H pCO2 (35 - 45 TORR) 31 L pO2 (80 - 100 TORR) 67 L HCO3 (21 - 28 MEQ/L) 22 ABG O2 Sat (Measured) (>96.0 %) 93.0 L P-50 (Temp Corrected) N Carboxyhemoglobin (1.5 - 5.0 %) 0.4 L O2 Concentration % RA Chemistry Sodium (137 - 145 mmol/L) 139 Potassium (3.5 - 5.1 mmol/L) 3.2 L Chloride (98 - 107 mmol/L) 103 Carbon Dioxide (22 - 30 mmol/L) 26 Anion Gap (5 - 16) 10 BUN (7 - 17 mg/dL) 6 L Creatinine (0.5 - 1.0 mg/dL) 0.6 Estimated GFR (>60 ml/min) > 60 BUN/Creatinine Ratio (7 - 25 %) 10.0 Phosphorus (2.5 - 4.5 mg/dL) 4.7 H Magnesium (1.6 - 2.3 mg/dL) 2.0 Wfh-C-Roftavdnwta Pept (<125 pg/mL) 1090 H Hematology CBC w Diff MAN DIFF ORDERED WBC (4.8 - 10.8 /CUMM) 18.0 H RBC (4.20 - 5.40 /CUMM) 4.31 Hgb (12.0 - 16.0 G/DL) 10.1 L Hct (37 - 47 %) 31.0 L MCV (81.0 - 99.0 FL) 71.9 L MCH (27.0 - 31.0 PG) 23.5 L MCHC (33.0 - 37.0 G/DL) 32.6 L RDW (11.5 - 14.5 %) 16.3 H Plt Count (130 - 400 /CUMM) 342 MPV (7.4 - 10.4 FL) 7.6 Gran % (42.2 - 75.2 %) 89.5 H Lymphocytes % (20.5 - 51.1 %) 3.4 L Monocytes % (1.7 - 9.3 %) 6.5 Eosinophils % (0 - 5 %) 0.5 Basophils % (0.0 - 2.0 %) 0.1 Absolute Granulocytes (1.4 - 6.5 /CUMM) 16.2 H Segmented Neutrophils (42.2 - 75.2 %) 91 H Band Neutrophils (0.0 - 5.0 %) 2 Absolute Lymphocytes (1.2 - 3.4 /CUMM) 0.6 L Lymphocytes (20.5 - 51.1 %) 3 L Monocytes (1.7 - 9.3 %) 2 Absolute Monocytes (0.10 - 0.60 /CUMM) 1.2 H Eosinophils (0 - 5.0 %) 1 Absolute Eosinophils (0.0 - 0.7 /CUMM) 0.1 Basophils (0.0 - 2.0 %) 1 Absolute Basophils (0.0 - 0.2 /CUMM) 0 Platelet Estimate (ADEQUATE) ADEQUATE Polychromasia 1+ Hypochromic-Microcytic 1+ Poikilocytosis 1+ Basophilic Stippling SLIGHT Anisocytosis 1+ Microcytic Cells 1+ Ovalocytes 1+ Stomatocytes FEW Miscellaneous Phlebotomy Draw Site RIGHT RADIAL Other Body Source Fld Total RBCs Counted (%) 100 16 1116 Hematology CBC w Diff NO MAN DIFF REQ WBC (4.8 - 10.8 /CUMM) 11.6 H RBC (4.20 - 5.40 /CUMM) 3.98 L Hgb (12.0 - 16.0 G/DL) 9.5 L Hct (37 - 47 %) 28.7 L MCV (81.0 - 99.0 FL) 72.1 L MCH (27.0 - 31.0 PG) 23.8 L MCHC (33.0 - 37.0 G/DL) 33.0 RDW (11.5 - 14.5 %) 15.8 H Plt Count (130 - 400 /CUMM) 248 MPV (7.4 - 10.4 FL) 7.4 Gran % (42.2 - 75.2 %) 81.3 H Lymphocytes % (20.5 - 51.1 %) 8.3 L Monocytes % (1.7 - 9.3 %) 8.3 Eosinophils % (0 - 5 %) 1.8 Basophils % (0.0 - 2.0 %) 0.3 Absolute Granulocytes (1.4 - 6.5 /CUMM) 9.4 H Absolute Lymphocytes (1.2 - 3.4 /CUMM) 1.0 L Absolute Monocytes (0.10 - 0.60 /CUMM) 1.0 H Absolute Eosinophils (0.0 - 0.7 /CUMM) 0.2 Absolute Basophils (0.0 - 0.2 /CUMM) 0 Diagnostic Data EKG Results Tracing was personally reviewed and shows sinus tachycardia at 114 bpm with no obvious infarct pattern CXR Results 1. New right internal jugular central venous catheter terminates in the mid to distal SVC. No pneumothorax. 2. Redemonstrated bilateral pulmonary consolidations which are basal predominant with mild improvement in aeration overall from the prior study. Other Results Telemetry tracings are personally reviewed and shows sinus rhythm and sinus tachycardia with [address] scan Right-sided pulmonary arterial filling defects indicative of right-sided pulmonary emboli. Multifocal pneumonia. Recommendation is for a followup chest series to be obtained following treatment and/or resolution of symptoms to assure resolution of this appearance. Extensive heterogeneity to the spleen which is likely pharmacy services representative of the differential enhancement to read and white pulp; however, that there are multiple subcentimeter low-attenuation nonenhancing lesions is difficult to exclude. Following treatment and/or resolution of symptoms, consider correlation with a follow-up limited left upper quadrant ultrasound. Prominent bilateral axillary lymph nodes. Correlate clinically. Echocardiogram Normal global left ventricular size, wall thickness, systolic function with no obvious regional wall motion abnormalities. Left ventricular ejection fraction is estimated at > 55 %. Normal right ventricular size and function. Left atrial size at the upper limits of normal. Right ventricular systolic pressure estimated to be elevated at > 50 mmHg. No pericardial effusion. Lucas Freed M.D. (Electronically Signed) Final Date: 22 February 2018 18:49 Assessment/Plan Assessment/Plan 1. Multifactorial respiratory failure requiring intubation 2. Multi focal pneumonia and right-sided pulmonary embolism 3. Status post 02/17/2018 4. Normal RV function by echocardiogram with pulmonary hypertension 5. Anemia Patient remains intubated and sedated. Echocardiogram as above showed no evidence of cardiomyopathy or RV dysfunction but pulmonary hypertension was noted. The patient is receiving broad-spectrum IV antibiotics for pneumonia along with anticoagulation for pulmonary embolism; she is currently hemodynamically stable. I discussed with Dr. Leos and agree that if the patient were to have refractory severe hypoxia ECMO would be a consideration. Condition remains guarded. Denilson Freed MD [facility] Consult Acknowledgment - Thank you for your consult request.
--- NOTE | 2018-02-23 12:56 | PN- Post Delivery/GYN ---
Subjective Subjective: Intubated Review of Systems: Pt rapidily deteriorated after transfer with PE. Now intubated on 100%. Pneumonia,PE,ARDS. Now awaiting decision for ECMO and transfer to [place]. Objective Last 24 Hrs of Vital Signs/I&O Vital Signs Date Time Temp Pulse Resp B/P B/P Pulse O2 O2 Flow FiO2 Mean Ox Delivery Rate 02/23 1020 100 02/23 0802 100 02/23 0800 98.1 90 20 120/70 96 Ventilator 100% 02/23 0800 96 Ventilator 100% 02/23 0605 100 02/23 0417 100 02/23 0400 92 Ventilator 100% 02/23 0301 85 02/23 0104 85 02/23 0000 98.7 106 20 136/60 95 Ventilator 85% 02/23 0000 95 Ventilator 85% 02/22 2219 85 02/22 2030 100 02/22 2000 91 Ventilator 100% 02/22 1730 100 02/22 1600 90 Nasal 75% Cannula 02/22 1600 98.2 88 30 152/90 92 Nasal 75% Cannula 02/22 1545 83 Nasal 5.0L Cannula Intake & Output 02/23 1600 02/23 0800 02/23 0000 Intake Total 1697 Output Total 580 3390 Balance 1117 -3390 Intake, IV 1697 Output, 50 350 Gastric Drainage Output, Urine 530 3040 Patient 250 lb 249 lb Weight Weight Bed scale Measurement Method Physical Exam: Pt is intubated Abd soft FF Venodynes in place Assessment/Plan Assessment/Plan POD6 s/p Rpt c/s in ICU with pneumonia, PE, ARDS possible ECMO and transfer to [place] Problem List: 1. 2. Pneumonia
--- NOTE | 2018-02-23 13:09 | Patient Discharge Instructions ---
Discharge Instructions General Discharge Information Special Instructions: - Please continue your care for your current medical conditions at [facility] Diet Continue normal diet: No Activity Full Activity/No Limits: No Activity Self Limited: Yes Acute Coronary Syndrome Inclusion Criteria At DC or during hospital stay patient has or had the following: ACS DIAGNOSIS No Discharge Core Measures Meds if any: Prescribed or Continued at Discharge Meds if any: NOT Prescribed or Continued at Discharge Congestive Heart Failure Inclusion Criteria At DC or during hospital stay patient has or had the following: CHF DIAGNOSIS No Discharge Core Measures Meds if any: Prescribed or Continued at Discharge Meds if any: NOT Prescribed or Continued at Discharge Cerebrovascular accident Inclusion Criteria At DC or during hospital stay patient has or had the following: CVA/TIA Diagnosis No Discharge Core Measures Meds if any: Prescribed or Continued at Discharge Meds if any: NOT Prescribed or Continued at Discharge Venous thromboembolism Inclusion Criteria VTE Diagnosis No VTE Type NONE VTE Confirmed by (Test) NONE Discharge Core Measures - Per Current guidelines, there needs to be overlap - treatment for the first 5 days of Warfarin therapy. - If discharged on Warfarin prior to 5 days of - overlap therapy, the patient will need to be - assessed for post discharge needs including - *Post discharge parental anticoagulation - *Warfarin and/or parental anticoagulation education - *Follow up date to check INR post discharge At least 5 days overlap therapy as Inpatient No Meds if any: Prescribed or Continued at Discharge Note: Overlap Therapy is Warfarin and Anticoagulant Meds if any: NOT Prescribed or Continued at Discharge
--- NOTE | 2018-02-23 13:11 | Discharge Summary ---
Visit Information Visit Dates Admission Date: 02/17/18 Discharge Date: 02/23/2018 Hospital Course Course Attending Physician: Luke Leos MD Primary Care Physician: Jeferson Whitlock MD Hospital Course: 22 yo F s/p on 02/17/18, Rh negative blood type s/p RhoGam on 11/20, previous miscarriage at 10 weeks of geatation and family history ( grandfather) of blood clots, asthma, came into the childbirth center for elective section on 02/17/2018, and underwent successful delivery of live female (Hermes Chandler MD, Obdulio). On 02/20/18, medicine consultation was made for fever, cough and blood-tinged sputum, and patient's subjective feeling of "feeling very sick" with CXR demonstrating possible pneumonia. She had received a dose of Unasyn prior to that, and was suggested to give Azithromycin and Ceftrixone for Community Acquired Pneumonia. On 02/22/18, she was reevaluated by the medical team-- she was having worsening leukocytosis, and tachypnea. ABG showed mild uncompensated respiratory alkalosis, with hypoxemia of 67. CTA done then showed PE of Right side and extensive bilateral multifocal pneumonia and she was started on IV Heparin. Then she was transferred from childbirth center to telemetry unit for closer monitoring and medical management. Overnight, her respiratory status worsened, and in the morning of , she was transferred to the ICU. IV antibiotics were changed to IV Vancomycin 1750mg q12h and IV Ceftazidime 2gm q8h based on her body weight and good renal function. Despite managing the patient very closely in the ICU, her respiratory status worsened and she was put on high-flow nasal canula. She was coughing out pink-frothy sputum and also felt nauseated, not amenable to IV antiemetics, a planned and consented endotracheal intubation was done (instead of BiPAP) on 02/22/18 itself. She has been on IV Vecuronium, IV Propofol, and IV Fentanyl, along with IV Heparin running beside the above mentioned antibiotics and supportive medications for intubated patient. Again, on mechanical ventilation, she continued to worsen, maintaining her oxygen saturation only with high in high tidal volume which by we tried bringing down while trying to maintain plateau pressure less than 30, but this has proven challenging. [facility] contacted for possible ECMO (extracorporeal membrane oxygenation) and her indications for it. Accordingly, she is being transferred to [facility] after mobile ECMO setup in [facility]. Allergies: Coded Allergies: NO KNOWN ALLERGIES (NONE 02/20/18) Pertinent Lab Results: ECHO from 02/22/18: CONCLUSIONS Normal global left ventricular size, wall thickness, systolic function with no obvious regional wall motion abnormalities. Left ventricular ejection fraction is estimated at > 55 %. Normal right ventricular size and function. Left atrial size at the upper limits of normal. Right ventricular systolic pressure estimated to be elevated at > 50 mmHg. No pericardial effusion. Lucas Freed M.D. (Electronically Signed) Final Date: 22 February 2018 18:49 Disposition Summary Disposition Principal Diagnosis: Right-sided pulmonary embolism, bilateral multifocal pneumonia, status post section on 02/17/18 Additional Diagnosis: History of asthma, previous miscarriage at 10 weeks gestation Discharge Disposition: other general hospital ([facility]) Discharge Instructions General Discharge Information Code Status: Full Code Patient's Diet: NPO currently (intubated) Patient's Activity: bedbound currently (intubated) Follow-Up Instructions/Appts: per referred center Medications at Discharge Discharge Medications: Continue taking these medications: Albuterol Sulfate (Proair Hfa) 90 MCG HFA.AER.AD 2 Puff Inhale through mouth As Directed as needed for ASTHMA Qty = 9 Comments: Last Taken: NOT GIVEN Time: Budesonide/Formoterol Fumarate (Symbicort 160-4.5 Mcg Inhaler) 160 MCG-4.5 MCG/ ACTUATION HFA.AER.AD 2 Puff Inhale through mouth TWICE DAILY Qty = 10 Comments: Last Taken: NOT GIVEN Time: Albuterol Sulfate (Albuterol Sulfate) 2.5 MG/3 ML (0.083 %) VIAL.NEB 1 Vial Inhale Solution As Directed as needed for ASTHMA Comments: Last Taken: 02/23 Time: 12 PM Vit No.130/Iron/FA ( Tablet) 27 MG IRON-800 MCG TABLET 1 Tablet ORAL DAILY Comments: Last Taken: NOT GIVEN Time: Valacyclovir Hydrochloride (Valtrex) 500 MG TABLET 500 Milligram ORAL DAILY Comments: Last Taken: NOT GIVEN Time: Start taking the following new medications: Ceftazidime (Ceftazidime) 2 GRAM VIAL 2,000 Milligram INTRAVEN Q8H Qty = 1 No Refills Comments: Last Taken: 02/23 Time: 1200 Guaifenesin (Guaifenesin ER) 600 MG TAB.ER.12H 600 Milligram ORAL TWICE DAILY Qty = 2 No Refills Comments: Last Taken: NOT GIVEN Time: Propofol (Anesthesia S/I-40) 10 MG/ML KIT 10 Milligram INTRAVEN Q3H Qty = 1 No Refills Comments: INFUSING AT 50MCG Vecuronium Joaquin/Water (Vecuronium 10 MG/10 Ml-Water) 10 MG/10 ML (1 MG/ML) SYRINGE 50 Milligram INTRAVEN Q6H Qty = 1 No Refills Comments: INFUSING AT 0.06MG/KG/HR (67.4ML) Fentanyl Citrate/Pf (Fentanyl 0.05 MG/Ml Syringe) 100 MCG/2 ML (50 MCG/ML) SYRINGE 250 Microgram INTRAVEN EVERY 10 HOURS Qty = 1 No Refills Comments: INFUSING AT 125MCG/HR Heparin Sod,Porcine/0.9 % NaCl (Heparin 25,000 Unit/500 Ml-Ns) 25,000 UNIT/500 ML (50 UNIT/ML) IV.SOLN 25,000 Unit INTRAVEN Q24H Qty = 1 No Refills Comments: INFUSING AT 19.6 UNITS/HR LAST PTT: 67 AT 1405 Vancomycin HCl in 5 % Dextrose (Vancomycin 1.75 Gram/500ML-D5w) 1.75 GRAM/500 ML PLAST..BAG 1 Bag INTRAVEN Q24H Qty = 1 No Refills Comments: Last Taken:02/23 Time: 1200 Pantoprazole Sodium (Protonix IV) 40 MG VIAL 40 Milligram INTRAVEN DAILY Qty = 1 No Refills Comments: Last Taken:02/23 Time: 1000 AM Copies To: Lourdes HANNA,Lucas; Chinyere HANNA,Jeferson Spencer MD,Burton Hernandez; Jazzy Hare MD, Obdulio Attending MD Review Statement Documenting Attending: Luke Leos MD Other Findings: ECMO on the go obtained transferred to [facility] for further management
--- NOTE | 2018-02-23 13:42 | Event Note ---
Event Note Event Note: Anticipating ECMO on the Go and transfer to [facility]. Discussed with Dr. Chalo Mcfarlane and administration for logistics of transportation and care. Mother has been updated and is in agreement.
--- NOTE | 2018-02-23 13:44 | Proc Note Internal Medicine ---
See Addendum Medicine Procedure Procedure Date: 02/23/18 Medical Procedure(s): arterial line placement Pre-Operative Diagnosis: pulmonary emboli, multifocal pneumonia with ARDS Post-Operative Diagnosis: pulmonary emboli, multifocal pneumonia with ARDS Estimated Blood Loss: scant Anesthesia: none Procedure Findings: Procedure Note Arterial Line Placement Physician: Dr Otilio Israel Anesthesia: None, on IV sedation with propofol and fentanyl A time-out was completed verifying correct patient, procedure, and site. An Allens test was performed to ensure adequate perfusion. Patients right was prepped in the usual sterile fashion. Ultrasound guidance was used to aid needle placement. A 20g Arrow arterial line was introduced into the right radial artery. Catheter was advanced over a guidewire using the Seldinger technique, with visible arterial blood return and waveform. The patient tolerated the procedure well, minimal blood loss, no complications.
--- NOTE | 2018-02-23 13:50 | RADIOLOGY REPORT ---
EXAMINATION: XR PORTABLE CHEST CLINICAL INFORMATION: Acute hypoxia. Patient on ventilator. COMPARISON: None TECHNIQUE: Portable frontal view of the chest was obtained. FINDINGS: The tip of the endotracheal tube is 5.8 cm by the rm. The tip of the right IJ central venous catheter is at the junction of the superior vena cava and right atrium. The enteric tube extends below the diaphragm and into the stomach. No pneumomediastinum or pneumothorax. Again noted is extensive airspace opacity of both lungs. The disease is similar in appearance compared to the prior radiograph from 02/22/2018 obtained at 8:54 PM. No overt pleural effusion. The visualized bones are intact. IMPRESSION: 1. The visualized tubes/lines are in satisfactory position. No pneumothorax. 2. Persistent, diffuse pulmonary airspace disease. Findings could represent multilobar pneumonia (with or without superimposed edema).
[2018-02-23 14:00] VITALS: BP 130/66; BP 140/74
[2018-02-23 14:03] LABS: PT 13.4 SEC (9.4-12.5); PTT 67 SEC (25-37)
[2018-02-23] MEDS ORDERED: VECURONIUM IV (14:54)
[2018-02-23] MEDS ORDERED: [UNRECOGNIZED DRUG - CODE] IV (14:54)
[2018-02-23] MEDS ORDERED: ANESTHESIA10 MG/1 M1 IV (14:54)
[2018-02-23] MEDS ORDERED: FENTANYL 0100 MCG/2 IV (14:54)
[2018-02-23] MEDS ORDERED: VANCOMYCIN1.75 GM/50 IV (15:00)
[2018-02-23] MEDS ORDERED: CEFTAZIDIME2 GM IV (15:00)
[2018-02-23] MEDS ORDERED: GUAIFENESIN ER600 MG PO (15:00)
[2018-02-23] MEDS ORDERED: PROTONIX IV40 M1 IV (15:00)
--- NOTE | 2018-02-23 17:19 | RADIOLOGY REPORT ---
EXAMINATION: XR PORTABLE CHEST CLINICAL INFORMATION: Confirmation of lines. COMPARISON: 02/23/2018 at 12:04 PM TECHNIQUE: Portable frontal view of the chest was obtained. FINDINGS: The right jugular sheath in the mid SVC. Tip of enteric tube is in the stomach. Tip of endotracheal tube is 6.3 cm above the rm. There is extensive airspace opacity in both lungs with some sparing of the lung apices. No change from previous study. IMPRESSION: Support lines and catheters in satisfactory position and essentially stable. Extensive bilateral airspace disease with some sparing of lung apices is noted. It is stable and unchanged.
--- NOTE | 2018-02-23 17:25 | RADIOLOGY REPORT ---
EXAMINATION: XR PORTABLE ABDOMEN CLINICAL INFORMATION: Position of lines for ECMO COMPARISON: Chest x-ray from earlier the same day. TECHNIQUE: P portable supine view of the abdomen. FINDINGS: There is a large bore catheter projecting over the visualized portions of the right common iliac vein and inferior vena cava with the tip positioned over the right T10-T11 disc space. This is likely in the region of the intrahepatic inferior vena cava up bowel 3 cm proximal to the junction with the right atrium There is an enteric tube in the stomach. IMPRESSION: Large bore central venous catheter is positioned at the right T10-T11 level in the expected location of the intrahepatic inferior vena cava approximately 3 cm proximal to the right atrial junction.
--- NOTE | 2018-02-23 21:43 | Event Note ---
Event Note Event Note: [place] ECMO team arrived. Patient had a left IJ TLC placed by the team. A right IJ vein over guide wire and right femoral vein were cannulated. ECMO started and fio2 was able to be brought down to 30%. Patient transferred to [facility] for further care. Family updated and all questions answered. Additional 2 hours spent on coordinating care, patient care and arranging transfer for the patient to [facility].
== END 2018-02-23 17:35 | disposition short-term general hospital (02) | DRG 540 ==
LOC: SDA 07:00 → GNO 10:07 → 1NO 02-22 03:56 → CRI 02-22 11:07
PROVIDERS: Internal Medicine; Obstetrics & Gynecology; Radiology Vascular & Interventional Radiology; Student in an Organized Health Care Education/Training Program
PROC: 10D00Z1 Extraction of Products of Conception, Low, Open Approach (ICD-10-PCS; principal; 2018-02-22)
PROC: 0BH17EZ Insertion of Endotracheal Airway into Trachea, Via Natural or Artificial Opening (ICD-10-PCS; 2018-02-22)
PROC: 5A1945Z Respiratory Ventilation, 24-96 Consecutive Hours (ICD-10-PCS; 2018-02-22)
PROC: 02HV33Z Insertion of Infusion Device into Superior Vena Cava, Percutaneous Approach (ICD-10-PCS; 2018-02-22)
PROC: 30233N1 Transfusion of Nonautologous Red Blood Cells into Peripheral Vein, Percutaneous Approach (ICD-10-PCS; 2018-02-23)
PROC: 3E0334Z Introduction of Serum, Toxoid and Vaccine into Peripheral Vein, Percutaneous Approach (ICD-10-PCS; 2018-02-23)
PROC: 06H033Z Insertion of Infusion Device into Inferior Vena Cava, Percutaneous Approach (ICD-10-PCS; 2018-02-23)
PROC: 03HB33Z Insertion of Infusion Device into Right Radial Artery, Percutaneous Approach (ICD-10-PCS; 2018-02-23)
DX: O34.211 Maternal care for low transverse scar from previous cesarean delivery (principal); O88.23 Thromboembolism in the puerperium; O99.52 Diseases of the respiratory system complicating childbirth; Z3A.40 40 weeks gestation of pregnancy; Z37.0 Single live birth; O90.81 Anemia of the puerperium; D64.89 Other specified anemias; O26.893 Other specified pregnancy related conditions, third trimester; Z67.91 Unspecified blood type, Rh negative; J91.8 Pleural effusion in other conditions classified elsewhere; J96.01 Acute respiratory failure with hypoxia; Y95 Nosocomial condition; N85.8 Other specified noninflammatory disorders of uterus; E87.6 Hypokalemia; J45.909 Unspecified asthma, uncomplicated; Z3A.39 39 weeks gestation of pregnancy; H66.91 Otitis media, unspecified, right ear; H65.92 Unspecified nonsuppurative otitis media, left ear; J18.1 Lobar pneumonia, unspecified organism; E87.3 Alkalosis; O99.214 Obesity complicating childbirth; Z68.41 Body mass index [BMI] 40.0-44.9, adult
CPT/HCPCS: CCU; GNOS; 36415; 71045; 71046; 74018; 81003; 82436; 86920; 86922; 87040; 87070; 87071; 87086; 87147; 87804; 87804-59; 93005; 93010; 93306; 93970; 94799; J0131; J0171; J0456; J0690; J0696; J0713; J1644; J1650; J1885; J1940; J2210; J2405; J2790; J3010; J3250; J3370; J3490; J7040; J7060; J7120; P9016